=== PATIENT | male | born 1940 | race Caucasian/White ===

== ENCOUNTER 2017-10-26 13:09 | Outpatient (CLI) | payer MEDICARE ==
--- NOTE | 2017-10-26 13:40 | RAD ---
TWO VIEW CHEST: History: Dyspnea. FINDINGS: Lungs appear clear. No infiltrate. No vascular congestion or edema. Heart size upper normal with post op sternotomy change. Osseous structures unremarkable. IMPRESSION: No acute process. POS: [facility]
== END 2017-10-26 13:10 | disposition home or self-care (01) ==
LOC: RAD 13:09
PROVIDERS: ATTEND Internal Medicine Pulmonary Disease
DX: R06.00 Dyspnea, unspecified (principal)
CPT/HCPCS: 71046

== ENCOUNTER 2018-06-15 06:39 | Outpatient (CLI) | payer MEDICARE ==
[2018-06-15 11:50] LABS: #Basophils 0.1 thou/uL (0.0-0.2); #Eosinphils 0.3 thou/uL (0.0-0.7); #Lymphocytes 1.5 thou/uL (1.20-3.40); #Monocytes 0.6 thou/uL (0.11-0.59); #Neutrophils 3.1 thou/uL (1.40-6.50); %Eosinophils 4.7 % (0.0-10.0); %Lymphocytes 27.4 % (21.0-51.0); %Monocytes 11.3 % (0.0-10.0); %Neutrophils 55.6 % (42.0-75.0); Hemoglobin 11.8 g/dL (14.0-18.0); Mean Corpuscular HGB CONC 32.7 g/dL (32.0-36.0); Mean Corpuscular Hemoglobin 26.8 pg (27.0-31.0); Mean Corpuscular Volume 81.8 fL (78.0-98.0); Mean Platelet Volume 8.6 fL (7.4-10.4); Platelet Count 226 thou/uL (130-400); RBC Distribution Width 12.8 % (11.5-14.5); White Blood Cell (WBC) Count 5.6 thou/uL (4.8-10.8)
[2018-06-15 12:16] LABS: ALT (SGPT) 14 U/L (8-55); AST (SGOT) 14 U/L (5-34); Albumin 3.8 g/dL (3.4-4.8); Alkaline Phosphatase 67 U/L (40-150); Anion Gap 13 mmol/L (10-20); BUN (Urea Nitrogen) 32 mg/dL (8.4-25.7); Bilirubin, Total 0.2 mg/dL (0.2-1.2); Calc. Creatinine Clearance 0 mL/min (70-130); Calcium 9.2 mg/dL (7.8-10.44); Carbon Dioxide 24 mmol/L (23-31); Chloride 104 mmol/L (98-107); Estimated GFR-MDRD 34; Globulin 2.8 g/dL (2.4-3.5); Glucose 204 mg/dL (83-110); Potassium 4.3 mmol/L (3.5-5.1); Protein, Total 6.6 g/dL (5.8-8.1); Sodium 137 mmol/L (136-145)
== END 2018-06-15 06:40 | disposition home or self-care (01) ==
LOC: LABBT 06:39
PROVIDERS: ATTEND Internal Medicine Cardiovascular Disease
DX: Z01.812 Encounter for preprocedural laboratory examination (principal); R06.00 Dyspnea, unspecified
CPT/HCPCS: 80053; 85025

== ENCOUNTER 2018-08-01 15:33 | Observation (INO) | payer MEDICARE ==
[2018-08-01 15:57] VITALS: BMI 34.8
[2018-08-01 16:15] LABS: #Basophils 0.1 thou/uL (0.0-0.2); #Eosinphils 0.4 thou/uL (0.0-0.7); #Lymphocytes 1.9 thou/uL (1.20-3.40); #Monocytes 0.8 thou/uL (0.11-0.59); #Neutrophils 4.1 thou/uL (1.40-6.50); %Basophils 0.9 % (0.0-1.0); %Eosinophils 5.9 % (0.0-10.0); %Monocytes 11.3 % (0.0-10.0); %Neutrophils 55.8 % (42.0-75.0); Hemoglobin 12.7 g/dL (14.0-18.0); Mean Corpuscular HGB CONC 32.9 g/dL (32.0-36.0); Mean Corpuscular Hemoglobin 27.7 pg (27.0-31.0); Mean Corpuscular Volume 84.2 fL (78.0-98.0); Mean Platelet Volume 8.4 fL (7.4-10.4); Platelet Count 239 thou/uL (130-400); RBC Distribution Width 13.3 % (11.5-14.5); Red Blood Cell (RBC) Count 4.58 mill/uL (4.70-6.10); White Blood Cell (WBC) Count 7.4 thou/uL (4.8-10.8)
[2018-08-01 16:34] LABS: Anion Gap 15 mmol/L (10-20); BUN (Urea Nitrogen) 36 mg/dL (8.4-25.7); Calc. Creatinine Clearance 49 mL/min (70-130); Calcium 9.3 mg/dL (7.8-10.44); Carbon Dioxide 20 mmol/L (23-31); Chloride 107 mmol/L (98-107); Estimated GFR-MDRD 34; Glucose 145 mg/dL (83-110); Sodium 138 mmol/L (136-145)
[2018-08-01] MEDS ORDERED: Zolpidem Tartrate 5 MG TAB PO PRN (17:24)
[2018-08-01] MEDS ORDERED: Mag-Al 1200 mg/1200 mg/30 ML UDCUP PO PRN (17:24)
[2018-08-01] MEDS ORDERED: Ondansetron ODT 4 MG TAB PO PRN (17:24)
[2018-08-01] MEDS ORDERED: Milk Of Magnesia 30 ML UDCUP PO PRN (17:24)
[2018-08-01] MEDS ORDERED: cloNIDine 0.1 MG TAB PO PRN (20:16)
[2018-08-01] MEDS: Amlodipine 10 MG TAB PO SCH (21:21)
[2018-08-01] MEDS: Ezetimibe 10 MG TAB PO SCH (21:21)
[2018-08-01] MEDS: hydrALAZINE 25 MG TAB PO SCH (21:22)
[2018-08-01] MEDS: Atorvastatin Calcium 40 MG TAB PO SCH (21:28)
[2018-08-01] MEDS: Sodium Chloride 0.9% 1,000 ML IV SCH (21:51)
[2018-08-02] MEDS: Aspirin 81 mg Enteric Coated Tablet PO SCH (06:14)
[2018-08-02] MEDS: Clopidogrel Bisulfate 75 MG TAB PO SCH (06:14)
[2018-08-02] MEDS: hydrALAZINE 25 MG TAB PO SCH ×3 (06:14→20:27)
[2018-08-02] MEDS: Atorvastatin Calcium 40 MG TAB PO SCH (06:15)
[2018-08-02 06:48] LABS: #Eosinphils 0.3 thou/uL (0.0-0.7); #Lymphocytes 1.3 thou/uL (1.20-3.40); #Monocytes 0.6 thou/uL (0.11-0.59); %Basophils 0.6 % (0.0-1.0); %Eosinophils 5.4 % (0.0-10.0); %Monocytes 10.9 % (0.0-10.0); %Neutrophils 58.1 % (42.0-75.0); Hemoglobin 11.3 g/dL (14.0-18.0); Mean Corpuscular HGB CONC 32.4 g/dL (32.0-36.0); Mean Corpuscular Hemoglobin 26.6 pg (27.0-31.0); Mean Corpuscular Volume 82.2 fL (78.0-98.0); Mean Platelet Volume 8.5 fL (7.4-10.4); Platelet Count 225 thou/uL (130-400); RBC Distribution Width 13.1 % (11.5-14.5); Red Blood Cell (RBC) Count 4.25 mill/uL (4.70-6.10); White Blood Cell (WBC) Count 5.2 thou/uL (4.8-10.8)
[2018-08-02] MEDS ORDERED: Heparin 10,000 UNITS/1 ML VIAL ONE ×2 (07:04→08:34)
[2018-08-02] MEDS ORDERED: Nitroglycerin 100MG/250ML BOT 250 ML ONE (07:04)
[2018-08-02 07:10] LABS: Anion Gap 12 mmol/L (10-20); BUN (Urea Nitrogen) 27 mg/dL (8.4-25.7); Calc. Creatinine Clearance 63 mL/min (70-130); Calcium 8.7 mg/dL (7.8-10.44); Carbon Dioxide 22 mmol/L (23-31); Chloride 108 mmol/L (98-107); Estimated GFR-MDRD 44; Glucose 207 mg/dL (83-110); Sodium 138 mmol/L (136-145)
[2018-08-02] MEDS ORDERED: Midazolam HCl 2 mg/2 ml Vial ONE (08:15)
[2018-08-02] MEDS ORDERED: Clopidogrel Bisulfate 300 MG TAB ONE (08:28)
[2018-08-02] MEDS ORDERED: Fentanyl 100 MCG/2 ML VIAL ONE (09:18)
[2018-08-02] MEDS ORDERED: Iopamidol 370 76% 100 ML VIAL ONE (09:53)
[2018-08-02] MEDS ORDERED: Iopamidol 370 76% 50 ML VIAL FS ONE (09:53)
[2018-08-02] MEDS ORDERED: Fentanyl 100 MCG/2 ML VIAL SLOW IVP PRN (10:04)
[2018-08-02] MEDS: Sodium Chloride 0.9% 1,000 ML IV SCH ×3 (13:43→21:47)
[2018-08-02] MEDS ORDERED: HumuLIN 70/30 (300 UNITS/3 ML VIAL) SC SCH (16:30)
--- NOTE | 2018-08-02 17:08 | EKG ---
Test Reason : POST STENT Blood Pressure : / mmHG Vent. Rate : 051 BPM Atrial Rate : 051 BPM P-R Int : 162 ms QRS Dur : 090 ms QT Int : 426 ms P-R-T Axes : 008 082 046 degrees QTc Int : 392 ms Sinus bradycardia Possible Anterior infarct , age undetermined Nonspecific T wave abnormality Abnormal ECG Confirmed by VISHNU AARON ([id number]) on 08/02/2018 5:07:33 PM Referred By: YADIRA Confirmed By:VISHNU AARON
[2018-08-02] MEDS: Ezetimibe 10 MG TAB PO SCH (20:28)
[2018-08-02] MEDS: Amlodipine 10 MG TAB PO SCH (20:28)
[2018-08-03 05:26] LABS: #Eosinphils 0.3 thou/uL (0.0-0.7); #Lymphocytes 1.3 thou/uL (1.20-3.40); #Monocytes 0.6 thou/uL (0.11-0.59); #Neutrophils 4.1 thou/uL (1.40-6.50); %Basophils 0.6 % (0.0-1.0); %Eosinophils 4.1 % (0.0-10.0); %Lymphocytes 20.6 % (21.0-51.0); %Neutrophils 64.7 % (42.0-75.0); Hemoglobin 11.2 g/dL (14.0-18.0); Mean Corpuscular HGB CONC 33.3 g/dL (32.0-36.0); Mean Corpuscular Hemoglobin 28.2 pg (27.0-31.0); Mean Corpuscular Volume 84.7 fL (78.0-98.0); Mean Platelet Volume 8.7 fL (7.4-10.4); Platelet Count 206 thou/uL (130-400); Red Blood Cell (RBC) Count 3.96 mill/uL (4.70-6.10); White Blood Cell (WBC) Count 6.3 thou/uL (4.8-10.8)
[2018-08-03 05:36] LABS: ALT (SGPT) 9 U/L (8-55); AST (SGOT) 14 U/L (5-34); Albumin 3.3 g/dL (3.4-4.8); Alkaline Phosphatase 57 U/L (40-150); Anion Gap 12 mmol/L (10-20); BUN (Urea Nitrogen) 22 mg/dL (8.4-25.7); Bilirubin, Total 0.2 mg/dL (0.2-1.2); Calc. Creatinine Clearance 66 mL/min (70-130); Calcium 8.5 mg/dL (7.8-10.44); Carbon Dioxide 21 mmol/L (23-31); Chloride 111 mmol/L (98-107); Estimated GFR-MDRD 48; Globulin 2.4 g/dL (2.4-3.5); Glucose 88 mg/dL (83-110); Potassium 3.9 mmol/L (3.5-5.1); Protein, Total 5.7 g/dL (5.8-8.1); Sodium 140 mmol/L (136-145)
[2018-08-03 08:29] VITALS: BP 145/66; TEMP 98.2
[2018-08-03] MEDS: hydrALAZINE 25 MG TAB PO SCH (09:10)
[2018-08-03] MEDS: Clopidogrel Bisulfate 75 MG TAB PO SCH (09:10)
[2018-08-03] MEDS: Aspirin 81 mg Enteric Coated Tablet PO SCH (09:10)
--- NOTE | 2018-08-03 13:05 | EKG ---
Test Reason : Blood Pressure : / mmHG Vent. Rate : 054 BPM Atrial Rate : 054 BPM P-R Int : 166 ms QRS Dur : 088 ms QT Int : 544 ms P-R-T Axes : 005 077 024 degrees QTc Int : 515 ms Sinus bradycardia with occasional Premature ventricular complexes Nonspecific T wave abnormality Prolonged QT Abnormal ECG Confirmed by VISHNU AARON ([id number]) on 08/03/2018 1:05:03 PM Referred By: YADIRA Confirmed By:VISHNU AARON
--- NOTE | 2018-08-03 15:35 | DIS ---
DATE OF ADMISSION: 08/01/2018 DATE OF DISCHARGE: 08/03/2018 DISCHARGE DIAGNOSIS: Coronary artery disease, status post stent placement. HISTORY OF PRESENT ILLNESS: Mr. Shaffer is a very pleasant 78-year-old gentleman, who was admitted overnight for hydration. He has chronic kidney disease. He underwent coronary angiography on 08/02/2018. He was found to have severe multivessel disease. His grafts were patent except for a graft to his right coronary artery. He had in-stent restenoses of a stent placed in 2017. He underwent successful stent placement. His hospital course was otherwise unremarkable. DISCHARGE MEDICATIONS: 1. Amlodipine 10 mg q.p.m. 2. Hydralazine 100 mg t.i.d. 3. Aspirin 81 daily. 4. Plavix 75 daily. 5. Losartan one daily. 6. DC omeprazole. 7. Lasix 20 daily. 8. Zetia 10 mg daily. 9. Atorvastatin 40 daily. 10. Insulin as prescribed. 11. Protonix 40 daily. CONDITION AT DISCHARGE: Stable. Job ID: [id number]
== END 2018-08-03 11:13 | disposition home or self-care (01) ==
LOC: 2SW 15:33
PROVIDERS: ADMIT Internal Medicine Cardiovascular Disease; ATTEND Internal Medicine Cardiovascular Disease
PROC: 4A023N7 Measurement of Cardiac Sampling and Pressure, Left Heart, Percutaneous Approach (ICD-10-PCS; principal; 2018-08-02)
PROC: B2111ZZ Fluoroscopy of Multiple Coronary Arteries using Low Osmolar Contrast (ICD-10-PCS; 2018-08-02)
PROC: B2131ZZ Fluoroscopy of Multiple Coronary Artery Bypass Grafts using Low Osmolar Contrast (ICD-10-PCS; 2018-08-02)
PROC: 027034Z Dilation of Coronary Artery, One Artery with Drug-eluting Intraluminal Device, Percutaneous Approach (ICD-10-PCS; 2018-08-02)
DX: I25.10 Atherosclerotic heart disease of native coronary artery without angina pectoris (principal); I25.82 Chronic total occlusion of coronary artery; I12.9 Hypertensive chronic kidney disease with stage 1 through stage 4 chronic kidney disease, or unspecified chronic kidney disease; N18.9 Chronic kidney disease, unspecified; Z79.02 Long term (current) use of antithrombotics/antiplatelets; Z79.4 Long term (current) use of insulin; Z79.82 Long term (current) use of aspirin; Z79.899 Other long term (current) drug therapy; Z95.1 Presence of aortocoronary bypass graft; Z95.5 Presence of coronary angioplasty implant and graft
CPT/HCPCS: 80048 ×2; 80053; 82962; 85025 ×3; 85347 ×2; 93005 ×2; 93798; 96360; 96361 ×3; C1769 ×2; C1874; G0378; G0379; 36415; 36416; 93010; J1644; J1815; J2250; J3010; Q9967

== ENCOUNTER 2018-11-27 16:51 | Observation (INO) | payer MEDICARE ==
--- NOTE | 2018-11-27 17:54 | RAD ---
FRONTAL VIEW CHEST: INDICATIONS: Chest pain. COMPARISON: 10/26/2017 FINDINGS: The cardiac silhouette is prominent, and there is mild prominence of the pulmonary vasculature. Patc hy density at the left lower lung zone is present. The right lung is grossly clear. Prior sternotom y is noted. IMPRESSION: Findings favor congestive heart failure with decompensation. Recommend clinical correlation, as well as imaging followup. POS: [facility]
[2018-11-27 18:00] LABS: #Basophils 0.1 thou/uL (0.0-0.2); #Eosinphils 0.2 thou/uL (0.0-0.7); #Lymphocytes 1.3 thou/uL (1.20-3.40); #Monocytes 0.6 thou/uL (0.11-0.59); #Neutrophils 3.3 thou/uL (1.40-6.50); %Basophils 1.3 % (0.0-1.0); %Eosinophils 4.2 % (0.0-10.0); %Monocytes 11.6 % (0.0-10.0); %Neutrophils 58.9 % (42.0-75.0); Hemoglobin 10.4 g/dL (14.0-18.0); Mean Corpuscular HGB CONC 33.4 g/dL (32.0-36.0); Mean Corpuscular Hemoglobin 27.3 pg (27.0-31.0); Mean Corpuscular Volume 81.6 fL (78.0-98.0); Mean Platelet Volume 8.9 fL (7.4-10.4); Platelet Count 174 thou/uL (130-400); RBC Distribution Width 13.5 % (11.5-14.5); Red Blood Cell (RBC) Count 3.81 mill/uL (4.70-6.10); White Blood Cell (WBC) Count 5.5 thou/uL (4.8-10.8)
[2018-11-27] MEDS ORDERED: Nitroglycerin 2% Ointment 1 INCH/1 GM Packet ONE (18:20)
[2018-11-27] MEDS ORDERED: Morphine 4 MG/ML VIAL ONE (18:20)
[2018-11-27] MEDS ORDERED: Aspirin Chewable 81 MG TAB ONE (18:22)
[2018-11-27 18:30] LABS: ALT (SGPT) 12 U/L (8-55); AST (SGOT) 12 U/L (5-34); Albumin 3.6 g/dL (3.4-4.8); Alkaline Phosphatase 51 U/L (40-150); Anion Gap 12 mmol/L (10-20); BUN (Urea Nitrogen) 44 mg/dL (8.4-25.7); Bilirubin, Total 0.2 mg/dL (0.2-1.2); Calc. Creatinine Clearance 0 mL/min (70-130); Calcium 8.6 mg/dL (7.8-10.44); Carbon Dioxide 20 mmol/L (23-31); Chloride 109 mmol/L (98-107); Estimated GFR-MDRD 29; Glucose 171 mg/dL (83-110); Lipase 30 U/L (8-78); Magnesium 1.5 mg/dL (1.6-2.6); Potassium 4.3 mmol/L (3.5-5.1); Protein, Total 5.6 g/dL (5.8-8.1); Sodium 137 mmol/L (136-145)
--- NOTE | 2018-11-27 19:04 | ULT ---
LEFT LOWER EXTREMITY ULTRASOUND WITH VENOUS DOPPLER DUPLEX: CPT: 32438 ICD-10-PCS: B54D INDICATIONS: Pain and edema. TECHNIQUE: Color-flow Doppler, spectral wave-form analysis of pulsed Doppler, and klein-scale imaging with compre ssion and augmentation were used to evaluate the bilateral common femoral, femoral, popliteal, vegetable harvest worker ior tibial, and superficial femoral veins, and the proximal portions of the profunda femoral and grea ter saphenous veins. FINDINGS: There is appropriate compressibility and flow within the imaged deep venous system of the left lower extremity. IMPRESSION: No deep venous thrombosis. POS: [facility]
[2018-11-27] MEDS ORDERED: Acetaminophen 325 MG TAB PO PRN (19:53)
[2018-11-27] MEDS ORDERED: Senokot S 8.6-50 MG TAB PO PRN (19:53)
[2018-11-27] MEDS ORDERED: HYDROcodone/Acetaminophen 5/325 mg Tablet PO PRN (19:53)
[2018-11-27] MEDS ORDERED: Magnesium 2 GM/50 ML BAG (IN WATER) ONE (20:17)
[2018-11-27] MEDS ORDERED: Lactated Ringer's 1,000 ML IV SCH ×2 (20:51→22:15)
[2018-11-27 20:59] LABS: Troponin I 0.011 ng/mL (< 0.028)
[2018-11-27] MEDS ORDERED: Famotidine 20 MG TAB PO SCH (21:00)
[2018-11-27 21:07] VITALS: BMI 33.7
[2018-11-27] MEDS ORDERED: Dextrose 50% Abboject 50 ML SYRINGE SLOW IVP PRN (23:12)
[2018-11-27] MEDS ORDERED: Dextrose 5% in Water 1,000 ML IV PRN (23:12)
[2018-11-27] MEDS ORDERED: HumaLOG 300 UNITS/3 ML VIAL SC PRN (23:12)
[2018-11-28 00:07] LABS: Troponin I Less than 0.010 ng/mL (< 0.028)
[2018-11-28] MEDS ORDERED: Lactated Ringer's 1,000 ML IV SCH ×2 (02:45)
--- NOTE | 2018-11-28 04:45 | HP ---
PRIMARY CARE PHYSICIAN: Dr. Earl. CARDIOLOGY: Krish Diop MD CHIEF COMPLAINT: Chest pain. HISTORY OF PRESENT ILLNESS: Mr. Shaffer is a 78-year-old man, who reported to the emergency room today for evaluation of chest pain. The patient does have a pertinent past medical history of CABG, stent placement, angina, coronary artery disease, congestive heart failure, diabetes, hypertension, sleep apnea. Initial troponin was undetectable. The patient was admitted in July of 2018 for dehydration and underwent coronary angiography on 08/02/2018. He was found to have severe multi-vessel disease. His grafts were patent except for the right coronary artery. He had in-stent restenoses of stent placed in 2017, which was successful and he was subsequently discharged. Reports that he has seen Dr. Diop recently and had his blood pressure medication changed. Reports that it bottomed out his blood pressure, so he went back to his PCP, who changed it to doxazosin. He reports chest pain, chest tightness, shortness of breath for the last 4 days. He denied any fever, chills, or cough. He also is experiencing some left lower extremity swelling, which he reports at baseline. An ultrasound was ordered and was negative for DVT. The patient will be admitted to the observation unit for further management. PAST MEDICAL HISTORY: Coronary artery disease with angina, coronary artery bypass of two vessels, history of hypertension, diabetes, arthritis. PAST SURGICAL HISTORY: Coronary artery bypass graft with two-vessel disease, tonsillectomy, bilateral cataract surgery, did have a cardiac cath in July of 2018, did have a restenoses of coronary artery graft. HOME MEDICATIONS: 1. Norvasc 10 mg p.o. q.p.m. 2. Lipitor 80 mg p.o. daily. 3. Doxazosin 2 mg p.o. at bedtime. 4. Zetia 10 mg p.o. at bedtime. 5. Furosemide 20 mg p.o. daily. 6. Hydralazine 100 mg p.o. t.i.d. 7. Insulin NPH 35 units subcu b.i.d. 8. Losartan 100 mg p.o. daily. 9. Aspirin 81 mg p.o. daily. 10. Plavix 75 mg p.o. daily. 11. Protonix 40 mg p.o. daily. REVIEW OF SYSTEMS: The patient reports chest pain. Denies palpitations. Reports shortness of breath, dyspnea on exertion. Denies cough. Denies fever or chills. All other systems are reviewed and are negative unless mentioned in the HPI. PHYSICAL EXAMINATION: VITAL SIGNS: Blood pressure 137/55, pulse is 53, respiratory rate is 19, temp is 98.6, pO2 sats 98% on room air. CONSTITUTIONAL: The patient is in no apparent distress. He is alert and oriented to person, place, and time. HEENT: Head is atraumatic and normocephalic. Eyes; eyelids are normal to inspection. Pupils are equally round and reactive to light. Extraocular muscles are intact. ENT; mouth exam is normal. Mucous membranes are moist. NECK: Normal range of motion. Trachea is midline. RESPIRATORY/CHEST: Chest movement is symmetrical. Breath sounds are clear. CARDIOVASCULAR: S1, S2. Heart sounds are normal. ABDOMEN: Nontender. Bowel sounds are heard. BACK: Normal range of motion. No CVA tenderness. EXTREMITIES: Upper extremity, normal range of motion. Radial pulses equal bilaterally. Lower extremity, normal range of motion. Swelling to bilateral lower extremities. NEUROLOGIC: The patient is oriented to person, place, and time. Speech is normal. SKIN: Warm, dry, normal in color. PSYCH: Has a normal affect. EKG shown in the ER, normal sinus rhythm, beats per minute 71 with frequent PVCs. QT is 449. X-ray of the chest shows congestive heart failure. Lower extremity DVT on the left shows no deep vein thrombosis. LABORATORY DATA: Lab values: Sodium is 137, potassium is 4.3, chloride is 109, carbon dioxide is 20, gap is 12, BUN is 44, creatinine is 2.24, estimated GFR is 29, glucose is 171, calcium is 8.6, magnesium is 1.5, total bilirubin 0.2. Liver enzymes are unremarkable. Troponin x3 are undetectable. Albumin 3.6, globulin is 2.0, lipase is 30. D-dimer 0.42. White blood cell count is 5.5, hemoglobin is 10.4, hematocrit is 31.1, and platelet count is 174. ASSESSMENT AND PLAN: 1. Chest pain in light of the patient has had a cardiac cath in July of this year, also has a history of congestive heart failure. We will ask Dr. Diop for his input. The patient's troponin x3 were undetectable. His magnesium level was low and was supplemented in the emergency room. 2. Acute on chronic kidney injury. The patient was given a bolus of fluid of 250 mL in the emergency room. We will add normal saline at 50 mL per hour x1 bag. We will recheck kidney function in the a.m. 3. Hypomagnesemia. Magnesium initially 1.5. Two grams of magnesium was given in the emergency room. We will check levels again in the morning. 4. Hypertension. We will restart home medications. 5. Hyperlipidemia. We will restart home medications. 6. Diabetes. We will check Accu-Cheks before meals and at bedtime, added sliding scale as needed for coverage. 7. Deep venous thrombosis and gastrointestinal prophylaxis have been started. 8. Hospital course will depend on clinical findings. Job ID: [id number]
[2018-11-28 05:16] LABS: #Basophils 0.1 thou/uL (0.0-0.2); #Eosinphils 0.2 thou/uL (0.0-0.7); #Lymphocytes 1.3 thou/uL (1.20-3.40); #Monocytes 0.6 thou/uL (0.11-0.59); #Neutrophils 2.9 thou/uL (1.40-6.50); %Basophils 1.1 % (0.0-1.0); %Eosinophils 4.7 % (0.0-10.0); %Lymphocytes 26.2 % (21.0-51.0); %Monocytes 11.3 % (0.0-10.0); %Neutrophils 56.8 % (42.0-75.0); Hemoglobin 10.4 g/dL (14.0-18.0); Mean Corpuscular HGB CONC 33.2 g/dL (32.0-36.0); Mean Corpuscular Hemoglobin 27.4 pg (27.0-31.0); Mean Corpuscular Volume 82.8 fL (78.0-98.0); Mean Platelet Volume 9.2 fL (7.4-10.4); Platelet Count 162 thou/uL (130-400); RBC Distribution Width 13.5 % (11.5-14.5); White Blood Cell (WBC) Count 5.1 thou/uL (4.8-10.8)
[2018-11-28 05:43] LABS: ALT (SGPT) 10 U/L (8-55); AST (SGOT) 12 U/L (5-34); Albumin 3.3 g/dL (3.4-4.8); Alkaline Phosphatase 45 U/L (40-150); Anion Gap 12 mmol/L (10-20); BUN (Urea Nitrogen) 36 mg/dL (8.4-25.7); Bilirubin, Total 0.2 mg/dL (0.2-1.2); Calc. Creatinine Clearance 50 mL/min (70-130); Carbon Dioxide 19 mmol/L (23-31); Chloride 111 mmol/L (98-107); Estimated GFR-MDRD 35; Globulin 2.3 g/dL (2.4-3.5); Glucose 130 mg/dL (83-110); Potassium 4.3 mmol/L (3.5-5.1); Protein, Total 5.6 g/dL (5.8-8.1); Sodium 138 mmol/L (136-145)
[2018-11-28] MEDS: HumuLIN 70/30 (300 UNITS/3 ML VIAL) SC SCH ×2 (09:26→18:01)
[2018-11-28] MEDS: hydrALAZINE 25 MG TAB PO SCH ×3 (10:15→20:53)
[2018-11-28] MEDS: Atorvastatin Calcium 40 MG TAB PO SCH (10:15)
[2018-11-28] MEDS: Furosemide 20 MG TAB PO SCH (10:16)
[2018-11-28] MEDS: Aspirin 81 mg Enteric Coated Tablet PO SCH (10:16)
[2018-11-28] MEDS: Clopidogrel Bisulfate 75 MG TAB PO SCH (10:16)
[2018-11-28] MEDS: Losartan 25 MG TAB PO SCH (10:16)
--- NOTE | 2018-11-28 16:32 | PRG ---
DATE OF SERVICE: 11/28/2018 SUBJECTIVE: Mr. Shaffer is a pleasant 78-year-old male with past medical history significant for CAD, status post CABG, status post recent PCI in July 2018, who presented to the hospital with worsening chest pain and shortness of breath, that he noticed while participating in cardiac rehab. The patient has ambulated the halls and continues to feel quite winded and uncomfortable secondary to his shortness of breath and chest pressure with ambulation. He denies any nausea or vomiting. He denies any diaphoresis. He is resting comfortably at the time of my interview. No other complaints. OBJECTIVE: VITAL SIGNS: Blood pressure is 136/63, pulse 49, respirations 18, O2 sat 94% on room air, and temperature 97.8. GENERAL: The patient is a mildly obese male, resting comfortably in bed, no acute distress. HEENT: Head is atraumatic and normocephalic. Mucous membranes are moist. NECK: Supple. Trachea is midline. No obvious JVD. CV: S1 and S2. Regular rhythm, bradycardic rate. Soft systolic murmur, grade 1/6. LUNGS: Regular respiratory rate and pattern. Clear to auscultation bilaterally. ABDOMEN: Soft. Positive bowel sounds. Moderately obese. Nontender. EXTREMITIES: +1 edema left, trace edema right. Lower extremities are warm and well perfused. SKIN: Warm and dry. No rashes. NEUROLOGIC: Cranial nerves 2 through 12 are grossly intact. The patient is nonfocal. PSYCHIATRIC: Appropriate mood and affect. LABORATORY DATA: Hemoglobin 10.4, hematocrit 31.4, white blood cell count 5.1, and platelets 162. Sodium 138, potassium 4.3, BUN 36, and creatinine 1.87. ASSESSMENT: 1. Chest pain and shortness of breath, acute coronary syndrome ruled out, but suspicious for angina given the patient's history. 2. Coronary artery disease, status post coronary artery bypass graft, status post multiple interventions, with the most recent PTCA and stenting of the vein graft to the RCA, July 2018. 3. 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 4. Type 2 diabetes mellitus. 5. Sinus bradycardia/sick sinus syndrome, apparently asymptomatic, no dizziness or syncope. PLAN: At this time, given the patient's renal insufficiency, plan is for continued optimization of the patient's oral antianginal medications. Per Dr. Diop, we will continue to monitor the patient's overnight, but the patient may indeed need left heart catheterization. We will continue aspirin, statin, and Plavix. Certainly, he may benefit from a trial of Ranexa or other antianginal. We will continue sliding scale insulin and we will continue to monitor his kidney function closely. Further recommendation is based on the patient's hospital course. Job ID: [id number]
--- NOTE | 2018-11-28 17:32 | CON ---
DATE OF CONSULTATION: REASON FOR CONSULTATION: Atypical chest pain. HISTORY OF PRESENT ILLNESS: Mr. Shaffer is a very pleasant 78-year-old gentleman with history of CAD status post bypass surgery and recent stent placement to a saphenous vein graft to the right coronary artery for in-stent restenoses. He states he has had weakness and fatigue recently. He has also had bradycardia. He stopped his Coreg 1 week ago. Heart rate has been in the mid 40s to 50s. His heart rate is mainly maintained in the mid 40s while asleep. He has also had chest pain. He states it was similar to his previous pain, although states he is unsure whether his pain improved after stent implantation in July. PAST MEDICAL HISTORY: As above; 1. Hypertension. 2. Bradycardia. 3. CAD. 4. COPD. 5. Chronic kidney disease. REVIEW OF SYSTEMS: A 10-point review of systems is reviewed as above, otherwise negative. PHYSICAL EXAMINATION: GENERAL: Patient is a pleasant 78-year-old gentleman who is in no acute distress. The patient appears their stated age. VITAL SIGNS: Blood pressure 110/53, pulse 60, temperature 97.9. NEUROLOGIC: The patient is alert and oriented x3 with no focal neurologic deficits. HEENT: Sclerae without icterus. Mouth has moist mucous membranes with normal pallor. NECK: No JVD. Carotid upstroke brisk. No bruits bilaterally. LUNGS: Clear to auscultation with unlabored respirations. BACK: No scoliosis or kyphosis. CARDIAC: Regular rate and rhythm with normal S1 and S2. No S3 or S4 noted. No significant rubs, murmurs, thrills, or gallops noted throughout the precordium. PMI is not displaced. There is no parasternal heave. ABDOMEN: Soft, nontender, nondistended. No peritoneal signs present. No hepatosplenomegaly. No abnormal striae. EXTREMITIES: 2+ femoral and 2+ dorsalis pedis pulses. No cyanosis, clubbing, or edema. SKIN: No gross abnormalities. IMPRESSION: 1. Atypical chest pain. 2. Coronary artery disease. 3. Status post bypass surgery. 4. Bradycardia. RECOMMENDATIONS: Mr. Shaffer's recent labs do not appear to show an acute ischemic event. His troponin is negative. His EKG is stable. I am unsure whether this is true in-stent restenoses. It certainly seems to would be a short-time span for the above. I discussed proceeding with coronary angiography and medical therapy. He is unsure about proceeding with coronary angiography. We will try medical therapy 1st. We will add Imdur 30 mg p.o. q.a.m. with 1st dose now. We will keep him n.p.o. after midnight. If he has recurrent symptoms, then proceed with angio in a.m. If he does well, we then discharge with close outpatient observation. May also consider a 3-week event recorder to assess for bradycardia, although bradycardia has mainly been in the non-waking hours. Job ID: [id number]
[2018-11-28] MEDS ORDERED: Amlodipine 10 MG TAB PO SCH (21:00)
[2018-11-28] MEDS ORDERED: Ezetimibe 10 MG TAB PO SCH (21:00)
[2018-11-28] MEDS ORDERED: Famotidine 20 MG TAB PO SCH (21:00)
[2018-11-28] MEDS ORDERED: Doxazosin 2 MG TAB PO SCH (21:00)
--- NOTE | 2018-11-29 07:33 | PDOC.CTH ---
Cardiology Progress Note - Subjective Doing well. NO recurrent CP. Pt with anxiety last pm and told by nourse she was concerned obout SAJI - Objective Vital Signs Temp Pulse Resp BP BP Pulse Ox 11/29/18 03:09 98.1 F 48 L 14 118/58 L 98 11/28/18 23:21 98.2 F 48 L 20 127/60 95 11/28/18 20:53 53 L 118/56 L 11/28/18 20:47 53 L 118/56 L Weight 236 lb 8 oz 11/28/18 11/29/18 11/30/18 06:59 06:59 06:59 Intake Total 623 1260 Output Total 700 1550 Balance -77 -290 - Physical Examination General/Neuro: alert & oriented x3, NAD Neck: carotid US brisk, no JVD present Lungs: unlabored respirations Heart: RRR Abdomen: no HSM, NT/ND, soft Extremities: + femoral B - Labs Result Diagrams: 11/28/18 04:29 11/29/18 07:38 Troponin/CKMB Troponin I Less than 0.010 ng/mL (< 0.028) 11/27/18 23:37 - Assessment/Plan Atypical CP CAD s/p CABG s/p stent for ISR RI Added imdur yesterday Creatinine stable Hold BB secondary to low HR Avoid ACEI, ARB On ASA, plavix Dicussed angio vs meds. Pt opts for meds. Pt with negative trops and negative KG. Seems reasonable given sent placed 3 months ago. No consistent with thrombosis
[2018-11-29 08:01] VITALS: TEMP 97.7
[2018-11-29 08:36] LABS: Anion Gap 11 mmol/L (10-20); BUN (Urea Nitrogen) 30 mg/dL (8.4-25.7); Calc. Creatinine Clearance 56 mL/min (70-130); Calcium 8.8 mg/dL (7.8-10.44); Carbon Dioxide 23 mmol/L (23-31); Chloride 108 mmol/L (98-107); Estimated GFR-MDRD 40; Glucose 98 mg/dL (83-110); Potassium 4.2 mmol/L (3.5-5.1); Sodium 138 mmol/L (136-145)
[2018-11-29] MEDS: Clopidogrel Bisulfate 75 MG TAB PO SCH (09:10)
[2018-11-29] MEDS: Furosemide 20 MG TAB PO SCH (09:10)
[2018-11-29] MEDS: hydrALAZINE 25 MG TAB PO SCH (09:10)
[2018-11-29] MEDS: Aspirin 81 mg Enteric Coated Tablet PO SCH (09:10)
[2018-11-29] MEDS: Atorvastatin Calcium 40 MG TAB PO SCH (09:10)
[2018-11-29] MEDS: Losartan 25 MG TAB PO SCH (09:11)
[2018-11-29] MEDS: HumuLIN 70/30 (300 UNITS/3 ML VIAL) SC SCH (09:12)
[2018-11-29 11:42] VITALS: BP 132/61
--- NOTE | 2018-11-29 12:16 | DIS ---
DATE OF ADMISSION: 11/27/2018 DATE OF DISCHARGE: 11/29/2018 CHIEF COMPLAINT ON ADMISSION: Chest pain. DISCHARGE DIAGNOSES: 1. Chest pain and shortness of breath, acute coronary syndrome ruled out, likely multifactorial in the setting of deconditioning, obesity, and untreated sleep apnea. 2. Coronary artery disease, status post four-vessel coronary artery bypass grafting, status post multiple interventions, most recent percutaneous transluminal coronary angioplasty and stenting of the vein graft to the right coronary artery in July 2018. 3. Acute on chronic renal insufficiency. At presentation, creatinine 2.24 on arrival, now 1.67, which appears to be his baseline, followed by Dr. Rodriguez. 4. Untreated obstructive sleep apnea. 5. Chronic obstructive pulmonary disease. 6. Sick sinus syndrome. 7. Type 2 diabetes mellitus. 8. Hypertension. 9. Obesity. BRIEF HOSPITAL COURSE: The patient is a very pleasant 78-year-old gentleman with past medical history for triple-vessel CAD, status post CABG and multiple interventions, COPD, untreated sleep apnea, and type 2 diabetes mellitus, who presented to the hospital with complaints of worsening chest pain and shortness of breath. The patient had noted decreased exercise tolerance at his cardiac rehab sessions. He stated that he felt worsening fatigue, and along with his symptoms, he was worried about stenosis of his recent stent placement, presented to the emergency department for further workup and treatment. He was admitted for ACS rule out. His serial troponins were indeed negative. He had no EKG changes. He was given gentle IV fluid resuscitation in the light of his creatinine of 2.24. This did trend down nicely. He was seen in consultation with Dr. Diop, who recommended optimization of his antianginals, given recent heart catheterization just a few months ago. The patient was started on Imdur 30 mg daily, which he did tolerate well. The patient has no complaints this morning. He is tolerating a full diet. No nausea or vomiting. No complaints at this time. DISCHARGE DISPOSITION: Home. DISCHARGE CONDITION: Stable. DISCHARGE INSTRUCTIONS AND FOLLOWUP: I have given the patient specific instructions regarding his followup and discharge plan. He will follow up with his block making machine operator, Dr. Cohen, for scheduling a sleep study along with treatment of his sleep apnea. I have explained him any sequelae of this going untreated including cardiac arrhythmias, pulmonary hypertension, fatigue, and shortness of breath. He will follow up with Dr. Diop as scheduled, and along with Dr. Rodriguez. The patient will continue his home medication regimen, which includes losartan, amlodipine, statin, aspirin, and Plavix. Unfortunately, the patient is unable to take beta-domingo due to his underlying bradycardia. I have advised the patient to discuss his ARB with Dr. Rodriguez regarding dosing and its role in his kidney disease. The patient will be discharged home in stable condition today. Job ID: [id number]
--- NOTE | 2018-12-02 22:10 | EKG ---
Test Reason : CHEST PAIN Blood Pressure : / mmHG Vent. Rate : 071 BPM Atrial Rate : 071 BPM P-R Int : 164 ms QRS Dur : 094 ms QT Int : 414 ms P-R-T Axes : 050 067 013 degrees QTc Int : 449 ms Sinus rhythm with frequent Premature ventricular complexes Otherwise normal ECG Confirmed by KATHY SHAW ([id number]), greeting card editor PADMA DOWNS ([id number]) on 12/02/2018 10:09:10 PM Referred By: COLIN Confirmed By:KATHY SHAW
== END 2018-11-29 11:40 | disposition home or self-care (01) ==
LOC: ERS 16:51 → 2SW 20:48
PROVIDERS: ADMIT Internal Medicine; ATTEND Internal Medicine
DX: R07.89 Other chest pain (principal); R06.02 Shortness of breath; I25.10 Atherosclerotic heart disease of native coronary artery without angina pectoris; I13.0 Hypertensive heart and chronic kidney disease with heart failure and stage 1 through stage 4 chronic kidney disease, or unspecified chronic kidney disease; E11.22 Type 2 diabetes mellitus with diabetic chronic kidney disease; N18.3 Chronic kidney disease, stage 3 (moderate); I50.9 Heart failure, unspecified; N17.9 Acute kidney failure, unspecified; M19.90 Unspecified osteoarthritis, unspecified site; E83.42 Hypomagnesemia; E78.5 Hyperlipidemia, unspecified; I49.5 Sick sinus syndrome; J44.9 Chronic obstructive pulmonary disease, unspecified; G47.33 Obstructive sleep apnea (adult) (pediatric); E66.9 Obesity, unspecified; Z68.33 Body mass index [BMI] 33.0-33.9, adult; Z79.4 Long term (current) use of insulin; Z79.02 Long term (current) use of antithrombotics/antiplatelets; Z79.82 Long term (current) use of aspirin; Z79.899 Other long term (current) drug therapy; Z95.1 Presence of aortocoronary bypass graft; Z95.5 Presence of coronary angioplasty implant and graft; Z98.890 Other specified postprocedural states
CPT/HCPCS: 71045; 80048; 80053 ×2; 82962 ×3; 83690; 83735 ×2; 84484 ×2; 85025 ×2; 85379; 93005; 93971; 94760; 96361 ×2; 96374; 97139; 99285; G0378 ×2; 36415; 36416; J1815; J2270; J3475

== ENCOUNTER 2018-12-18 12:45 | Outpatient (CLI) | payer MEDICARE ==
--- NOTE | 2018-12-18 14:42 | RAD ---
2 views of the chest: 12/18/2018 COMPARISON: 10/26/2017 HISTORY: Shortness of breath FINDINGS: Stable pulmonary hyperinflation. Findings suggest air trapping on the basis of COPD in the proper clinical setting. Stable prominence of the cardiac silhouette. Midline sternotomy wires are noted. No pneumothorax or pleural fluid. No focal consolidation or alveolar edema. IMPRESSION: Stable appearance of the chest.
== END 2018-12-18 12:46 | disposition home or self-care (01) ==
LOC: RAD 12:45
PROVIDERS: ATTEND Internal Medicine Pulmonary Disease
DX: R06.00 Dyspnea, unspecified (principal)
CPT/HCPCS: 71046

== ENCOUNTER 2019-01-01 19:30 | Outpatient (CLI) | payer MEDICARE | END 2019-01-01 19:31 | disposition home or self-care (01) | LOC: SLEEPLAB 19:30 | PROVIDERS: ATTEND Internal Medicine Pulmonary Disease | DX: G47.33 Obstructive sleep apnea (adult) (pediatric) (principal); K21.9 Gastro-esophageal reflux disease without esophagitis; E66.9 Obesity, unspecified; J44.9 Chronic obstructive pulmonary disease, unspecified; I25.10 Atherosclerotic heart disease of native coronary artery without angina pectoris; I10 Essential (primary) hypertension | CPT/HCPCS: 95811 ==

== ENCOUNTER 2019-03-12 12:48 | Observation (INO) | payer MEDICARE ==
[2019-03-12 15:20] VITALS: BMI 33.8
[2019-03-12 17:00] LABS: Troponin I Less than 0.010 ng/mL (< 0.028)
[2019-03-12] MEDS ORDERED: hydrALAZINE 20 MG/ML VIAL ONE ×2 (17:31→17:37)
[2019-03-12] MEDS ORDERED: hydrALAZINE 20 MG/ML VIAL SLOW IVP SCH (18:00)
[2019-03-12] MEDS ORDERED: Ondansetron ODT 4 MG TAB PO PRN (18:29)
[2019-03-12] MEDS ORDERED: Dextrose 50% Abboject 50 ML SYRINGE SLOW IVP PRN (18:29)
[2019-03-12] MEDS ORDERED: Acetaminophen 325 MG TAB PO PRN (18:29)
[2019-03-12] MEDS ORDERED: Dextrose 5% in Water 1,000 ML IV PRN (18:29)
[2019-03-12] MEDS ORDERED: Ondansetron PF 4 MG/2 ML Vial IVP PRN (18:29)
[2019-03-12] MEDS ORDERED: HumaLOG 300 UNITS/3 ML VIAL SC PRN ×2 (18:29)
[2019-03-12] MEDS ORDERED: Morphine 4 MG/ML VIAL SLOW IVP PRN (18:32)
[2019-03-12] MEDS ORDERED: Furosemide 40 MG/4 ML VIAL SLOW IVP SCH (18:45)
[2019-03-12 19:58] LABS: Troponin I Less than 0.010 ng/mL (< 0.028)
[2019-03-12] MEDS: hydrALAZINE 25 MG TAB PO SCH (20:09)
[2019-03-12] MEDS: Ezetimibe 10 MG TAB PO SCH (20:10)
[2019-03-12] MEDS: Amlodipine 10 MG TAB PO SCH (20:10)
[2019-03-12] MEDS: Doxazosin 2 MG TAB PO SCH (20:10)
--- NOTE | 2019-03-12 22:05 | HP ---
PRIMARY CARE PHYSICIAN: Aide Carlisle. CHIEF COMPLAINT: Chest pain. HISTORY OF PRESENT ILLNESS: Mr. Shaffer is a 78-year-old male with a past medical history of coronary artery disease, status post bypass and stent placement, hypertension, hyperlipidemia, congestive heart failure, diabetes mellitus type 2, and chronic kidney disease, who was seen at [facility] earlier today for his chest pain. He states that the chest pain has been on and off over the last week and has been worse with exertion, he was treated with topical nitroglycerin paste and given an aspirin orally, which had seemed to help with his chest pain. Therefore, he was transferred to [facility] for further workup and management of his symptoms. His serial troponins were found to be negative thus far, he also underwent a portable chest x-ray, which was found to show cardiomegaly without evidence of congestive heart failure at this time. At that time, he had denied any fever, chills, any headache, blurred vision, dizziness, any chest pain, palpitations, shortness of breath, abdominal pain, nausea, or vomiting. He did report some swelling on his lower extremities, which has been slightly worse in the left leg. He states that he was seen by Dr. Diop during the summer for these same symptoms, and Dr. Diop questioned a repeat heart catheterization, but due to the patient's renal function, it was determined the patient be treated medically. Therefore, he was started on Imdur at that time. REVIEW OF SYSTEMS: All other systems reviewed and found to be negative unless mentioned in HPI. PAST MEDICAL HISTORY: Hypertension, hyperlipidemia, diabetes mellitus type 2, coronary artery disease, congestive heart failure, sleep apnea. PAST SURGICAL HISTORY: Coronary artery bypass graft surgery x2 vessels, tonsillectomy, bilateral cataract surgery, cardiac stents x2. PSYCHIATRIC HISTORY: None. SOCIAL HISTORY: The patient reports drinking socially. He denies any tobacco or illicit drug use, he is a former tobacco smoker, but quit more than 12 years ago. KNOWN ALLERGIES: No known drug allergies. CURRENT HOME MEDICATIONS: 1. Aspirin 81 mg daily. 2. Clopidogrel 75 mg oral daily. 3. Losartan 100 mg oral daily. 4. Amlodipine 10 mg oral daily. 5. Atorvastatin 80 mg oral daily. 6. Doxazosin 2 mg p.o. at bedtime. 7. Zetia 10 mg p.o. at bedtime. 8. Furosemide 20 mg oral daily. 9. Hydralazine 100 mg oral t.i.d. 10. Insulin BPH 70/30, 35 units subcu b.i.d. 11. Isosorbide mononitrate 30 mg p.o. daily. 12. Protonix 40 mg oral daily. 13. Anoro 62.5/25 mcg one inhalation daily. PHYSICAL EXAMINATION: VITAL SIGNS: BP 129/64, pulse 47, respirations 19, temperature 97.5, O2 saturation 98% on room air. GENERAL: The patient is awake, alert, and oriented x3. He is currently lying comfortably in bed and in no acute distress. HEENT: Atraumatic, normocephalic. Pupils are round and reactive to light. Extraocular muscles intact. Moist mucous membranes noted. NECK: Soft and supple. Trachea midline. CARDIOVASCULAR: Positive S1 and S2. Regular rate and rhythm. No murmur auscultated. RESPIRATORY: Clear to auscultation bilaterally. No wheezes, rales, or rhonchi. ABDOMEN: Soft, nontender. Bowel sounds present. MUSCULOSKELETAL: Moves all extremities equal. Pedal and radial pulses 2+ bilaterally. The patient with 2+ pitting edema in left leg, 1+ pitting edema in right below the knee. NEUROLOGIC: Cranial nerves 2 through 12 grossly intact. No focal deficits noted. Speech intact and normal. Gait not assessed. SKIN: Warm, dry and intact. No rashes. No ulceration noted. PSYCHIATRIC: Good mood and affect. LABORATORY DATA: WBC 5.3, RBC 4.28, hemoglobin 10.9, hematocrit 33.9, platelet 194. Sodium 139, potassium 4.4, anion gap 15, BUN 40, creatinine 2.25, estimated GFR 28, glucose 283, magnesium 1.8, CK-MB 1.1, troponin less than 0.010 x3. DIAGNOSTIC IMAGING: Portable chest x-ray showed cardiomegaly without evidence of congestive heart failure. ASSESSMENT AND PLAN: 1. Chest pain, due to patient's history, we will consult Cardiology Services at this time and we will restart his home regimen. However, we will hold Plavix and his home dose of losartan due to his current acute kidney injury status. We will treat him symptomatically as needed with nitroglycerin and IV morphine. The patient's pain is currently stable. His EKG is unchanged from prior studies and his troponin is negative x3. 2. Hypertension. Continue home regimen. Monitor blood pressure and other vital signs closely. However, due to his current acute kidney injury, we will hold home dose of losartan. 3. Acute on chronic kidney disease. We will place consult for his primary varnish thinner, Dr. Rodriguez. 4. History of congestive heart failure. The patient does appear to be slightly fluid overloaded. Therefore, we will treat him with IV Lasix x1 dose and monitor clinically. 5. Diabetes mellitus type 2. Continue regimen along with insulin sliding scale on frequent Accu-Cheks. 6. Deep venous thrombosis and gastrointestinal prophylaxis. 7. Code status, full code. 8. Surrogate decision maker is his daughter, Francesca. DISPOSITION: Pending further workup and clinical findings and the patient's progress. Job ID: [id number]
[2019-03-12] MEDS: diphenhydrAMINE 25 MG CAP PO PRN (22:48)
[2019-03-13 04:24] LABS: #Basophils 0.1 thou/uL (0.0-0.2); #Eosinphils 0.2 thou/uL (0.0-0.7); #Lymphocytes 1.2 thou/uL (1.20-3.40); #Monocytes 0.6 thou/uL (0.11-0.59); #Neutrophils 4.7 thou/uL (1.40-6.50); %Basophils 0.8 % (0.0-1.0); %Eosinophils 3.4 % (0.0-10.0); %Monocytes 8.3 % (0.0-10.0); %Neutrophils 69.6 % (42.0-75.0); Hemoglobin 11.6 g/dL (14.0-18.0); Mean Corpuscular HGB CONC 33.7 g/dL (32.0-36.0); Mean Corpuscular Hemoglobin 27.7 pg (27.0-31.0); Mean Corpuscular Volume 82.2 fL (78.0-98.0); Platelet Count 189 thou/uL (130-400); RBC Distribution Width 13.7 % (11.5-14.5); Red Blood Cell (RBC) Count 4.21 mill/uL (4.70-6.10); White Blood Cell (WBC) Count 6.7 thou/uL (4.8-10.8)
[2019-03-13 04:37] LABS: Anion Gap 14 mmol/L (10-20); BUN (Urea Nitrogen) 40 mg/dL (8.4-25.7); Calc. Creatinine Clearance 44 mL/min (70-130); Carbon Dioxide 21 mmol/L (23-31); Chloride 105 mmol/L (98-107); Estimated GFR-MDRD 31; Glucose 206 mg/dL (83-110); Potassium 4.4 mmol/L (3.5-5.1); Sodium 136 mmol/L (136-145)
[2019-03-13] MEDS: Enoxaparin Sodium 30 MG/0.3 ML SYRINGE SC SCH ×2 (07:55→13:09)
[2019-03-13] MEDS: HumuLIN 70/30 (300 UNITS/3 ML VIAL) SC SCH ×2 (07:55→17:45)
[2019-03-13] MEDS: hydrALAZINE 25 MG TAB PO SCH ×3 (07:58→21:14)
[2019-03-13] MEDS: Aspirin 81 mg Enteric Coated Tablet PO SCH (07:58)
[2019-03-13] MEDS: Atorvastatin Calcium 40 MG TAB PO SCH (07:59)
[2019-03-13] MEDS: Furosemide 20 MG TAB PO SCH (07:59)
[2019-03-13] MEDS: Isosorbide Mononitrate (ER) 30 MG TAB PO SCH (07:59)
--- NOTE | 2019-03-13 12:33 | CON ---
DATE OF CONSULTATION: 03/13/2019 CONSULTING PHYSICIAN: Corey De La O PA-C REASON FOR CONSULTATION: Acute kidney injury on chronic kidney disease, stage 3. REASON FOR ADMISSION: Chest pain. HISTORY OF PRESENT ILLNESS: This is a 78-year-old male with history of CKD, hypertension, hyperlipidemia, and CAD, who came to the hospital with chest pain and has been evaluated. The patient does follow up with me at the clinic. He has recently had a cardiac procedure. The patient is feeling better. He was also found to have bradycardia. No nausea or vomiting. No fever or chills. PAST MEDICAL HISTORY: Positive for hypertension, hyperlipidemia, type 2 diabetes, coronary artery disease, congestive heart failure, and sleep apnea, PAST SURGICAL HISTORY: CABG, tonsillectomy, cataract surgery, and cardiac stents. HOME MEDICATIONS: 1. Aspirin. 2. Plavix. 3. Losartan. 4. Amlodipine. 5. Atorvastatin. 6. Doxazosin. 7. Zetia. 8. Furosemide. 9. Hydralazine. 10. Insulin. 11. Isosorbide. 12. Protonix. 13. Anoro. ALLERGIES: NO KNOWN DRUG ALLERGIES. SOCIAL HISTORY: No smoking, alcohol, or illicit drugs. FAMILY HISTORY: No history of kidney disease. REVIEW OF SYSTEMS: CONSTITUTIONAL: Negative for weight loss or gain, ability to conduct usual activities. SKIN: Negative for rash, itching. EYES: Negative for double vision, pain. ENT/MOUTH: Negative for nose bleeding, neck stiffness, pain, tenderness. CARDIOVASCULAR: Negative for palpitations, dyspnea on exertion, orthopnea. RESPIRATORY: Negative for shortness of breath, wheezing, cough, hemoptysis, fever or night sweats. GASTROINTESTINAL: Negative for poor appetite, abdominal pain, heartburn, nausea, vomiting, constipation, or diarrhea. GENITOURINARY: Negative for urgency, frequency, dysuria, nocturia. MUSCULOSKELETAL: Negative for pain, swelling. NEUROLOGIC/PSYCHIATRIC: Negative for anxiety, depression. ALLERGY/IMMUNOLOGIC: Negative for skin rash, bleeding tendency. PHYSICAL EXAMINATION: GENERAL: Reveals a well-built male, in no apparent distress. VITAL SIGNS: Temperature 97.9, pulse , and blood pressure 114/62. HEENT: Atraumatic, normocephalic. Oral mucosa is moist. NECK: Supple. CARDIOVASCULAR: S1 and S2. Regular rate and rhythm. RESPIRATORY: Clear. GASTROINTESTINAL: Abdomen is soft. MUSCULOSKELETAL: 1+ edema. DERMATOLOGIC: No skin rash. NEUROLOGIC: Alert and awake. PSYCHIATRIC: Mood and affect normal. LABORATORY DATA: Potassium 4.4, BUN is 40, and creatinine is 2.09 from 2.25 yesterday, baseline is around 1.4 to 1.8. ASSESSMENT AND PLAN: 1. Acute kidney injury on chronic kidney disease, stage 3, slightly better, most likely cardiorenal syndrome. 2. Cardiorenal syndrome. 3. Edema, better. 4. Shortness of breath is better. 5. Chest pain, better. 6. History of hypertension. 7. Anemia of chronic disease. Renal function seems to be slightly better, most likely cardiorenal syndrome and Lasix yesterday. We will continue to monitor. Avoid nephrotoxins and follow with Cardiology for further plans. The patient remains at moderate risk for contrast-induced nephropathy. We will follow. Job ID: [id number]
--- NOTE | 2019-03-13 12:40 | CON ---
DATE OF CONSULTATION: HISTORY OF PRESENT ILLNESS: The patient is a 78-year-old gentleman, who presented with dizziness and chest discomfort. The patient has a long history of coronary artery disease. He is status post coronary artery bypass surgery x 2 nearly 15 years ago. The patient states he underwent PTCA and stent placement approximately 2 years ago. He re-presented with chest pain, underwent a repeat catheterization. He was found to have a patent CUMMINS and underwent PTCA and stent placement to the RCA graft. The patient reports having chest pain with and without exertion. The patient presented to the emergency room with increasing chest discomfort. He also was noted having increasing dizziness. The patient has a history of bradycardia and wore an event monitor. The patient states that he had severe midsternal chest discomfort that was relieved with nitroglycerin. He denies having any present chest discomfort. PAST MEDICAL HISTORY: 1. Coronary artery disease. 2. Bradycardia. 3. Hypertension. 4. Dyslipidemia. 5. Diabetes mellitus. 6. Chronic renal failure. PAST SURGICAL HISTORY: Coronary artery bypass graft surgery. SOCIAL HISTORY: Former smoker. ALLERGIES: NO KNOWN DRUG ALLERGIES. FAMILY HISTORY: Positive family history of heart disease. REVIEW OF SYSTEMS: Ten-point system noticed for increasing dizziness and weakness. PHYSICAL EXAMINATION: GENERAL: An obese gentleman in no acute distress. VITAL SIGNS: Blood pressure 141/64. NECK: No jugular venous distention. LUNGS: Clear to auscultation. HEART: Regular rate and rhythm. Normal S1 and S2 with a 2/6 systolic murmur. ABDOMEN: Distended. EXTREMITIES: Showed trace edema. VASCULAR: Radial pulses are 2+. LABORATORY RESULTS: Sodium 136, potassium 4.4, chloride 105, bicarbonate 21, BUN 40, creatinine 2.0, troponin 0.01. White blood cell count 6.7, hemoglobin 11.6, hematocrit 34.6, and his platelets are 189. IMAGING STUDIES: His EKG reveals him to have normal sinus bradycardia with poor R-wave progression. IMPRESSION: 1. Chest pain with some features suggestive of angina. 2. History of percutaneous transluminal coronary angioplasty and stent placement. 3. History of coronary artery bypass surgery x2. 4. Chronic renal insufficiency. 5. Diabetes mellitus. This gentleman presents with chest pain and dyspnea from a cardiac standpoint. I would recommend he undergo stress testing. We will also try to obtain his last echocardiogram. We will follow this patient with you through his hospitalization. Job ID: [id number] ANNE MARIE
[2019-03-13] MEDS ORDERED: FLU VACC TS2019-20(65YR UP)/PF 180 MCG/0.5 ML SYRINGE IM ONE (16:00)
--- NOTE | 2019-03-13 18:09 | PDOC.HOSPP ---
- Subjective Encounter Date: 03/13/19 Encounter Time: 15:05 Subjective: f/u for CP/angina on current Imdur. Plan for BARGEMAN as renal function not amenable to contrast study with [facility]. - Objective Vital Signs & Weight: Vital Signs (12 hours) Temp Pulse Resp BP BP Pulse Ox 03/13/19 17:06 58 L 140/63 03/13/19 16:00 55 L 140/63 03/13/19 11:58 97.4 F L 58 L 18 127/62 95 03/13/19 08:00 97.9 F 53 L 20 141/64 H 94 L 03/13/19 07:58 54 L Weight Weight 224 lb 9.6 oz I&O: 03/12/19 03/13/19 03/14/19 06:59 06:59 06:59 Intake Total 830 Balance 830 Result Diagrams: 03/13/19 03:47 03/13/19 03:47 Additional Labs: Accuchecks 03/13/19 03/13/19 03/12/19 16:52 10:53 20:41 POC Glucose 301 H 190 H 150 H Radiology Reviewed by me: Yes (PCXR - cardiomegaly) EKG Reviewed by me: Yes (Tele - SR) Hospitalist ROS - Medication Medications: Active Medications Generic Name Dose Route Start Last Admin Trade Name Freq PRN Reason Stop Dose Admin Albuterol/Ipratropium 3 ml 03/12/19 19:00 03/13/19 12:10 Duoneb NEB Not Given [id number] MAYDA Amlodipine Besylate 10 mg 03/12/19 21:00 03/12/19 20:10 Norvasc PO 10 mg QPM MAYDA Administration Aspirin 81 mg 03/13/19 09:00 03/13/19 07:58 Ecotrin PO 81 mg DAILY MAYDA Administration Atorvastatin Calcium 80 mg 03/13/19 09:00 03/13/19 07:59 Lipitor PO 80 mg DAILY MAYDA Administration Diphenhydramine HCl 25 mg 03/12/19 22:39 03/12/19 22:48 Benadryl PO 25 mg HS PRN Administration Itching & Insomnia Doxazosin Mesylate 2 mg 03/12/19 21:00 03/12/19 20:10 Cardura PO 2 mg HS MAYDA Administration Ezetimibe 10 mg 03/12/19 21:00 03/12/19 20:10 Zetia PO 10 mg HS MAYDA Administration Enoxaparin Sodium 30 mg 03/13/19 09:00 03/13/19 13:09 Lovenox SC 30 mg 0900 MAYDA Administration Furosemide 20 mg 03/13/19 09:00 03/13/19 07:59 Lasix PO 20 mg DAILY MAYDA Administration Hydralazine HCl 100 mg 03/12/19 21:00 03/13/19 17:06 Apresoline PO 100 mg TID MAYDA Administration Insulin Human Isoph/Insulin Regular 35 units 03/13/19 07:30 03/13/19 17:45 Humulin 70/30 SC 35 unit BID-AC MAYDA Administration Insulin Human Lispro 0 units 03/12/19 18:29 03/13/19 17:46 Humalog SC 5 unit .MILD SLIDING SCALE PRN Administration Mild Correctional Scale Isosorbide Mononitrate 30 mg 03/13/19 09:00 03/13/19 07:59 Imdur Er PO 30 mg DAILY MAYDA Administration Morphine Sulfate 4 mg 03/12/19 18:32 03/12/19 19:21 Morphine SLOW IVP 4 mg Q4H PRN Administration Moderate to Severe Pain (6-10) Pantoprazole Sodium 40 mg 03/13/19 09:00 03/13/19 07:58 Protonix PO 40 mg DAILY MAYDA Administration - Exam General Appearance: NAD, awake alert Eye: PERRL, anicteric sclera ENT: normocephalic atraumatic, no oropharyngeal lesions Neck: supple, symmetric, no JVD, no thyromegaly, no lymphadenopathy Heart: RRR, no murmur, no gallops, no rubs, normal peripheral pulses Respiratory: CTAB, no wheezes, no rales, no ronchi, normal chest expansion Gastrointestinal: soft, non-tender, non-distended, normal bowel sounds Extremities: no cyanosis, no clubbing, no edema Skin: normal turgor, no lesions Neurological: cranial nerve grossly intact, no new deficit Musculoskeletal: normal tone, normal strength Psychiatric: normal affect, A&O x 3 Hosp A/P (1) Chest pain Code(s): R07.9 - CHEST PAIN, UNSPECIFIED Status: Acute Plan: Suspect angina, continue Nitrates, ASA/Plavix, BARGEMAN in am, may consider Ranexa (2) CAD (coronary artery disease) Code(s): I25.10 - ATHSCL HEART DISEASE OF [place] CORONARY ARTERY W/O ANG PCTRS Status: Chronic Plan: Continue ASA/Plavix, Lipitor (3) HTN (hypertension) Code(s): I10 - ESSENTIAL (PRIMARY) HYPERTENSION Status: Chronic Qualifiers: Hypertension type: essential hypertension Qualified Code(s): I10 - Essential (primary) hypertension Plan: Resume home BP regimen, serial monitoring (4) DM II (diabetes mellitus, type II), controlled Code(s): E11.9 - TYPE 2 DIABETES MELLITUS WITHOUT COMPLICATIONS Status: Chronic Plan: ISS, continue home Insulin 70/30 35u sc BID (5) CKD (chronic kidney disease), stage III Code(s): N18.3 - CHRONIC KIDNEY DISEASE, STAGE 3 (MODERATE) Status: Chronic Plan: Avoid nephrotoxic meds and limit contrast exposure - Plan out of bed/ambulate, DVT proph w/SCDs Stable currently Plan for BARGEMAN in am Continue Imdur/ASA/Plavix Consider Ranexa AM lab: BMP
[2019-03-13] MEDS: Ezetimibe 10 MG TAB PO SCH (21:14)
[2019-03-13] MEDS: Doxazosin 2 MG TAB PO SCH (21:15)
[2019-03-13] MEDS: Amlodipine 10 MG TAB PO SCH (21:15)
[2019-03-13] MEDS: diphenhydrAMINE 25 MG CAP PO PRN (21:18)
[2019-03-14 06:41] LABS: Anion Gap 11 mmol/L (10-20); BUN (Urea Nitrogen) 45 mg/dL (8.4-25.7); Calc. Creatinine Clearance 44 mL/min (70-130); Calcium 8.8 mg/dL (7.8-10.44); Carbon Dioxide 26 mmol/L (23-31); Chloride 106 mmol/L (98-107); Estimated GFR-MDRD 32; Glucose 84 mg/dL (83-110); Potassium 3.6 mmol/L (3.5-5.1); Sodium 139 mmol/L (136-145)
[2019-03-14] MEDS: HumuLIN 70/30 (300 UNITS/3 ML VIAL) SC SCH ×2 (09:30→11:37)
[2019-03-14] MEDS: hydrALAZINE 25 MG TAB PO SCH ×2 (11:38→15:21)
[2019-03-14] MEDS: Atorvastatin Calcium 40 MG TAB PO SCH (11:39)
[2019-03-14] MEDS: Aspirin 81 mg Enteric Coated Tablet PO SCH (11:39)
[2019-03-14] MEDS: Isosorbide Mononitrate (ER) 30 MG TAB PO SCH (11:39)
[2019-03-14] MEDS: Enoxaparin Sodium 30 MG/0.3 ML SYRINGE SC SCH (11:40)
[2019-03-14] MEDS: Furosemide 20 MG TAB PO SCH (11:40)
--- NOTE | 2019-03-14 12:17 | NM ---
MYOCARDIAL PERFUSION SCAN: INDICATIONS: Chest pain. TECHNIQUE: The patient was given approximately 30 millicuries of technetium labeled sestamibi for both stress an d rest images. The patient was stressed according to Lexiscan protocol. FINDINGS: The left ventricle was imaged with SPECT imaging. Attenuation correction images obtained. Activity throughout the left ventricle appears symmetrical on stress and rest images. No evidence of reversible ischemia. Wall motion evaluation reveals left ventricular dilatation with global hypokinesis and dyskinesis. Ej ection fraction is recorded at 62%. IMPRESSION: No evidence of reversible ischemia. POS: SIRIA
[2019-03-14 12:29] VITALS: BP 149/65; TEMP 97.5
--- NOTE | 2019-03-14 14:46 | CON ---
DATE OF CONSULTATION: REASON FOR CONSULTATION: Recurrent episodes of chest pain. His stress study was negative for significant ischemia. PAST MEDICAL HISTORY: CAD, status post bypass surgery, hypertension, hyperlipidemia, chronic kidney disease. PAST SURGICAL HISTORY: CABG. PHYSICAL EXAMINATION: VITAL SIGNS: Blood pressure 149/65, pulse 56, temperature 97.5. GENERAL: Patient is a pleasant male, who is in no acute distress. The patient appears their stated age. NEUROLOGIC: The patient is alert and oriented x3 with no focal neurologic deficits. HEENT: Sclerae without icterus. Mouth has moist mucous membranes with normal pallor. NECK: No JVD. Carotid upstroke brisk. No bruits bilaterally. LUNGS: Clear to auscultation with unlabored respirations. BACK: No scoliosis or kyphosis. CARDIAC: Regular rate and rhythm with normal S1 and S2. No S3 or S4 noted. No significant rubs, murmurs, thrills, or gallops noted throughout the precordium. PMI is not displaced. There is no parasternal heave. ABDOMEN: Soft, nontender, nondistended. No peritoneal signs present. No hepatosplenomegaly. No abnormal striae. EXTREMITIES: 2+ femoral and 2+ dorsalis pedis pulses. No cyanosis, clubbing, or edema. SKIN: No gross abnormalities. PERTINENT LABORATORY DATA: CK troponin negative. IMPRESSION: 1. Atypical chest pain. 2. Coronary artery disease. 3. Chronic kidney disease. 4. Status post bypass surgery. RECOMMENDATIONS: From a CV standpoint, Mr. Shaffer is doing well. We will continue current medical therapy. I did discuss angiography, although his stress study was negative for ischemia with a normal LVEF. Given his renal insufficiency, he is at increased risk of contrast nephropathy. The patient is pleased with the findings on his stress study. We would like to continue medical therapy. We will continue with amlodipine, aspirin, atorvastatin, in addition to isosorbide. Hold beta-domingo therapy due to intermittent episodes of bradycardia. Otherwise, from my standpoint, I have no further recommendations. We will plan to follow up as an outpatient. Job ID: [id number]
--- NOTE | 2019-03-14 16:25 | DIS ---
DATE OF ADMISSION: 03/12/2019 DATE OF DISCHARGE: 03/14/2019 DISCHARGE DIAGNOSES: 1. Chest pain, noncardiac. 2. Coronary artery disease, chronic and stable. 3. Hypertension stable. 4. Acute kidney injury on chronic kidney disease, stage 3. 5. Diabetes mellitus type 2, insulin requiring. CONSULTATIONS: 1. Dr. Nolan with Cardiology Service. 2. Dr. Rodriguez with Nephrology Service. PERTINENT LABORATORY AND X-RAY FINDINGS: Creatinine ranged between 2.03 and 2.25. Estimated GFR ranged between 28 and 32. Troponin I negative x3. CBC showed a hemoglobin 12, hematocrit 35. Portable chest x-ray dated 03/12/2019, showed cardiomegaly without evidence of pulmonary edema. Cardiolite stress test dated 03/13/2019, showed no evidence for reversible or fixed ischemia with calculated ejection fraction of 62%. HOSPITAL COURSE: The patient was initially placed in observation on the telemetry unit after presenting with chest pain concerning for unstable angina. Serial cardiac biomarkers were performed x3, which were negative as stated previously. The patient proceeded to Cardiolite stress testing showing no evidence of reversible or fixed ischemia with a calculated ejection fraction of 62%. The patient was also noted with acute kidney injury in the context of chronic kidney disease stage 3, likely due to contrast-induced nephropathy. The patient was evaluated by the Nephrology Service with recommendations to modify chronic medications and avoid further nephrotoxic agents and contrast. Serial creatinine showed slow improvement and renal function; however, the patient remained clinically stable through the hospital course. I have examined the patient the time of discharge and discussed followup instructions. The patient overall clinically stable and ready for discharge on 03/14/2019. DISCHARGE MEDICATIONS: 1. Amlodipine 10 mg p.o. at bedtime. 2. Lipitor 80 mg p.o. daily. 3. Doxazosin 2 mg p.o. at bedtime. 4. Zetia 10 mg p.o. at bedtime. 5. Lasix 20 mg p.o. daily. 6. Hydralazine 100 mg p.o. t.i.d. 7. NPH insulin 35 units subcutaneously b.i.d. 8. Anoro Ellipta 62.5 mcg inhaled daily. 9. Enteric-coated aspirin 81 mg p.o. daily. 10. Plavix 75 mg p.o. daily. 11. Imdur 30 mg p.o. daily. 12. Losartan 100 mg p.o. daily, hold x72 hours. 13. Protonix 40 mg p.o. daily. FOLLOWUP: The patient may follow up with Dr. Manzo within 7 days of discharge. CONDITION ON DISCHARGE: Stable. ACTIVITY: Ad-nat. DIET: Heart healthy and ADA. CODE STATUS: Full. DISPOSITION: Home, 03/14/2019. Job ID: [id number]
--- NOTE | 2019-03-14 20:50 | PRG ---
DATE OF SERVICE: 03/14/2019 SUBJECTIVE: Patient was seen and examined at bedside and overnight events noted. Patient denies any shortness of breath or chest pain or palpitation. No history of nausea or vomiting or diarrhea or fever or chills or cramps. OBJECTIVE: GENERAL: This is a well-built male, in no apparent distress. VITAL SIGNS: Temperature 97.8. Heart rate 56. Respiratory rate 18. Blood pressure 149/65. HEENT: Atraumatic, normocephalic. Oral mucosa is moist NECK: Supple. CARDIOVASCULAR: S1, S2 heard. Rate and rhythm regular. RESPIRATORY: Clear to auscultation. GASTROINTESTINAL: Abdomen is soft. MUSCULOSKELETAL: No tenderness. No edema. DERMATOLOGIC: No skin rash. NEUROLOGIC: Alert and awake and oriented X3. No focal neurologic deficits. Moving all the extremities. PSYCHIATRIC: Mood and affect normal. LABORATORY DATA: Potassium 3.6, BUN is 45, creatinine is 2.03. ASSESSMENT AND PLAN: 1. Acute kidney injury on chronic kidney disease, stage 3, stable. 2. Cardiorenal syndrome. 3. Edema. 4. Chest pain. 5. Hypertension. 6. Anemia of chronic disease. Labs are stable from Nephrology standpoint, we will follow. Avoid nephrotoxins. We will follow with Cardiology and primary team. Job ID: [id number]
--- NOTE | 2019-03-15 23:45 | STRESS ---
Acquisition Time: 2019-03-14 09:57:20 Total Exercise Time: 00:01:00 Test Indications: CHEST PAIN Medications: Protocol: LEXISCAN Max HR: 074 BPM 51% of Pred: 143 BPM Max BP: 152/052 mmHG Max Work Load: 1.0 METS RESTING ECG: SINUS BRADYCARDIA AT 51 BPM WITH RIGHT AXIS DEVIATION, OLD SEPTAL AND ANTERIOR AR; NON-SPECIFIC ST SEGMENT AND T-WAVE CHANGES SYMPTOMS: NONE NORMAL BP RESPONSE ECTOPY: RARE PVC'S ECG STRESS: NO SIGNIFICANT CHANGES INTERPRETATION: INDETERMINATE ECG/AWAIT NUCLEAR IMAGES FOR DEFINITIVE DIAGNOSIS Confirmed by COMPA NAJERA M.D. ([id number]) on 03/15/2019 11:44:25 PM Referred By: MD Shruthi AARON Confirmed By:COMPA NAJERA M.D.
--- NOTE | 2019-03-19 22:24 | EKG ---
Test Reason : CHEST PAIN Blood Pressure : / mmHG Vent. Rate : 054 BPM Atrial Rate : 054 BPM P-R Int : 170 ms QRS Dur : 082 ms QT Int : 540 ms P-R-T Axes : 006 075 025 degrees QTc Int : 512 ms Sinus bradycardia Prolonged QT Abnormal ECG When compared with ECG of 12-MAR-2019 13:09, (Unconfirmed) QT has lengthened Confirmed by COMPA NAJERA M.D. ([id number]) on 03/19/2019 10:24:06 PM Referred By: ALIN Confirmed By:COMPA NAJERA M.D.
== END 2019-03-14 15:29 | disposition home or self-care (01) ==
LOC: ERS 12:48 → 2SW 15:18
PROVIDERS: ADMIT Internal Medicine; ATTEND Internal Medicine
DX: R07.89 Other chest pain (principal); I25.10 Atherosclerotic heart disease of native coronary artery without angina pectoris; I13.0 Hypertensive heart and chronic kidney disease with heart failure and stage 1 through stage 4 chronic kidney disease, or unspecified chronic kidney disease; E11.22 Type 2 diabetes mellitus with diabetic chronic kidney disease; N18.3 Chronic kidney disease, stage 3 (moderate); N17.9 Acute kidney failure, unspecified; I50.9 Heart failure, unspecified; G47.30 Sleep apnea, unspecified; Z79.4 Long term (current) use of insulin; Z79.82 Long term (current) use of aspirin; Z79.899 Other long term (current) drug therapy; Z87.891 Personal history of nicotine dependence; Z95.1 Presence of aortocoronary bypass graft; Z91.5 Personal history of self-harm
CPT/HCPCS: 78452; 80048 ×2; 82962 ×3; 84484; 85025; 90662; 93005; 93017; 96372; 96374; 96375; 96376; 97139; 99285; A9500; G0008; G0378 ×3; 36415; 36416; 90471; 93010; J0360; J1650; J1815; J1940; J2270; Q0163

== ENCOUNTER 2019-05-14 21:04 | Observation (INO) | payer MEDICARE ==
[2019-05-14 21:33] LABS: #Eosinphils 0.4 thou/uL (0.0-0.7); #Lymphocytes 1.7 thou/uL (1.20-3.40); #Monocytes 0.7 thou/uL (0.11-0.59); #Neutrophils 4.5 thou/uL (1.40-6.50); %Basophils 0.6 % (0.0-1.0); %Eosinophils 4.9 % (0.0-10.0); %Monocytes 9.6 % (0.0-10.0); Hemoglobin 11.4 g/dL (14.0-18.0); Mean Corpuscular HGB CONC 34.6 g/dL (32.0-36.0); Mean Corpuscular Hemoglobin 27.7 pg (27.0-31.0); Mean Corpuscular Volume 80.2 fL (78.0-98.0); Mean Platelet Volume 8.2 fL (7.4-10.4); Platelet Count 206 thou/uL (130-400); RBC Distribution Width 12.9 % (11.5-14.5); White Blood Cell (WBC) Count 7.2 thou/uL (4.8-10.8)
[2019-05-14 21:52] LABS: ALT (SGPT) 14 U/L (8-55); AST (SGOT) 16 U/L (5-34); Albumin 3.9 g/dL (3.4-4.8); Alkaline Phosphatase 68 U/L (40-110); Anion Gap 13 mmol/L (10-20); BUN (Urea Nitrogen) 32 mg/dL (8.4-25.7); Bilirubin, Total 0.2 mg/dL (0.2-1.2); Calc. Creatinine Clearance 0 mL/min (70-130); Carbon Dioxide 23 mmol/L (23-31); Chloride 103 mmol/L (98-107); Estimated GFR-MDRD 31; Globulin 2.8 g/dL (2.4-3.5); Glucose 197 mg/dL (83-110); Protein, Total 6.7 g/dL (5.8-8.1); Sodium 135 mmol/L (136-145)
--- NOTE | 2019-05-14 22:42 | RAD ---
AP CHEST: History: Chest pain, shortness of breath. FINDINGS: Borderline cardiomegaly with post op sternotomy change and pacemaker leads. No infiltrate or vascular congestion. Blunting of the left CP angle could represent small left effusion. Findings have not significantly changed from the exam of 03-12-19. IMPRESSION: Question small left effusion. Chest is otherwise unremarkable and unchanged. POS: OFF
--- NOTE | 2019-05-14 23:40 | ULT ---
LEFT UPPER EXTREMITY VENOUS DUPLEX EXAM: Technique: Veins of left upper extremity evaluated with ultrasound, color doppler, spectral analysis and compression. Indications: Left upper extremity pain and edema. FINDINGS: The left internal jugular veins show normal flow and compression. The left subclavian vein shows norm al blood flow with doppler study. Left axillary vein, basilic vein, brachial vein, ulnar vein, cephalic vein and radial vein were all i cary and appear unremarkable. No evidence of venous thrombosis. IMPRESSION: No evidence of left upper extremity venous thrombosis identified. POS: OFF
[2019-05-15] MEDS ORDERED: Aspirin Chewable 81 MG TAB ONE (01:01)
[2019-05-15] MEDS ORDERED: Insulin Regular 300 UNITS/3 ML VIAL SC PRN (02:19)
[2019-05-15] MEDS ORDERED: Dextrose 50% Abboject 50 ML SYRINGE SLOW IVP PRN (02:19)
[2019-05-15] MEDS ORDERED: Dextrose 5% in Water 1,000 ML IV PRN (02:19)
[2019-05-15] MEDS ORDERED: Acetaminophen 650 MG Suppository PR PRN (02:20)
[2019-05-15] MEDS ORDERED: Acetaminophen 325 MG TAB PO PRN (02:20)
[2019-05-15] MEDS ORDERED: Furosemide 40 MG/4 ML VIAL SLOW IVP SCH (02:30)
[2019-05-15] MEDS ORDERED: Furosemide 20 MG/2 ML VIAL ONE (03:13)
--- NOTE | 2019-05-15 03:23 | HP ---
TIME OF ASSESSMENT: 0200 hours. CHIEF COMPLAINT: Shortness of breath and left upper extremity swelling. HISTORY OF PRESENT ILLNESS: Mr. Shaffer is a pleasant 79-year-old gentleman, who was recently discharged from the hospital two months ago on March 14, 2019, after being admitted with chest pain. He underwent a stress test at that time that was normal with an EF of 62%. Since then, the patient has undergone a pacemaker placement three weeks ago. He states in the last 2 days, he has developed shortness of breath similar to what he was experiencing prior to the pacemaker placement. He states that shortness of breath is present even at rest and he has noted significant swelling of the left upper extremity. Denies any redness or skin changes. Denies any fevers or chills. He has been dealing with a dry cough for the last few days and nasal congestion. Denies any sore throat. No chest pain or palpitations. He has noted some lower extremity edema. Otherwise feeling well without any other complaints. PAST MEDICAL HISTORY: 1. Coronary artery disease. 2. CHF. 3. Type 2 diabetes mellitus. 4. Hypertension. 5. Sleep apnea. PAST SURGICAL HISTORY: 1. CABG x2. 2. Tonsillectomy. 3. Bilateral cataract surgery. 4. Heart stents x3. 5. Pacemaker placed three weeks ago. SOCIAL HISTORY: The patient lives with his family. Reports drinking alcohol occasionally/socially. Denies any tobacco use or illicit drug use. ALLERGIES: NO KNOWN DRUG ALLERGIES. CURRENT MEDICATIONS: 1. Lipitor. 2. Aspirin. 3. Losartan. 4. Novolin 70/30. 5. Lasix. PHYSICAL EXAMINATION: GENERAL: The patient appears well developed, well nourished, he is in no acute distress. VITAL SIGNS: Temperature 97.6, pulse 74, blood pressure 156/64, respirations 16, and O2 saturation 96% on room air. HEENT: Normocephalic and atraumatic. Pupils are equal, round, and reactive to light. Sclerae without icterus. Oropharynx is clear. NECK: Supple. LUNGS: Clear to auscultation bilaterally without wheezes, rales, or rhonchi. CARDIAC: Regular rate and rhythm. ABDOMEN: Soft, obese, nontender, nondistended. Normoactive bowel sounds present. EXTREMITIES: Left upper extremity notable for swelling when compared to the right. Bilateral lower extremities also notable for swelling. No calf tenderness. NEUROLOGIC: Alert and oriented x3. SKIN: Without rash or jaundice. LABORATORY DATA: White count 7.2, hemoglobin 11.4, hematocrit 32.9, and platelets 206. D-dimer elevated at 1.28. Sodium 135, potassium 4.0, BUN 32, creatinine 2.11, GFR 31, and glucose 197. LFTs unremarkable. Troponin negative. BNP 24.6. Albumin 3.9. DIAGNOSTIC STUDIES: Chest x-ray done showed questionable small left pleural effusion. Otherwise unremarkable. Vascular ultrasound of the left upper extremity without evidence of DVT. IMPRESSION AND PLAN: Mr. Shaffer is a pleasant 79-year-old gentleman presenting with shortness of breath for 2 days and left upper extremity swelling, has been referred for management of the following; 1. Shortness of breath/left upper extremity swelling. The patient believed to be in fluid overload given swelling involving the lower extremities as well. He underwent a venous Doppler that was negative for deep venous thrombosis involving the left upper extremity. Given elevated D-dimer, we will plan to obtain a V/Q scan in the morning. He was unable to have a CT angiogram due to underlying chronic kidney disease. He was given aspirin in the emergency department. We will plan to give him a dose of Lasix. Continue diuresis. 2. Hypertension. Monitor blood pressure. Resume home medications once verified. 3. Congestive heart failure. As mentioned above, we will diurese. 4. Coronary artery disease. Resume home medications once verified. 5. Type 2 diabetes mellitus. Monitor blood glucose. Initiate insulin sliding scale. 6. Gastrointestinal prophylaxis with famotidine. 7. Code status, full. Surrogate decision maker is his daughter, Francesca Oconnor. The patient was seen by Dr. Parker, who has advised plan as above. Job ID: [id number]
[2019-05-15 03:38] LABS: #Eosinphils 0.3 thou/uL (0.0-0.7); #Lymphocytes 1.6 thou/uL (1.20-3.40); #Monocytes 0.6 thou/uL (0.11-0.59); #Neutrophils 4.2 thou/uL (1.40-6.50); %Basophils 0.7 % (0.0-1.0); %Eosinophils 3.9 % (0.0-10.0); %Lymphocytes 24.1 % (21.0-51.0); %Monocytes 9.3 % (0.0-10.0); Hemoglobin 11.3 g/dL (14.0-18.0); Mean Corpuscular Hemoglobin 27.3 pg (27.0-31.0); Mean Corpuscular Volume 80.1 fL (78.0-98.0); Mean Platelet Volume 8.2 fL (7.4-10.4); Platelet Count 189 thou/uL (130-400); RBC Distribution Width 12.9 % (11.5-14.5); Red Blood Cell (RBC) Count 4.15 mill/uL (4.70-6.10); White Blood Cell (WBC) Count 6.8 thou/uL (4.8-10.8)
[2019-05-15 03:58] LABS: Anion Gap 14 mmol/L (10-20); BUN (Urea Nitrogen) 30 mg/dL (8.4-25.7); Calc. Creatinine Clearance 0 mL/min (70-130); Calcium 9.1 mg/dL (7.8-10.44); Carbon Dioxide 22 mmol/L (23-31); Chloride 106 mmol/L (98-107); Estimated GFR-MDRD 36; Glucose 145 mg/dL (83-110); Potassium 3.8 mmol/L (3.5-5.1); Sodium 138 mmol/L (136-145)
[2019-05-15 04:04] LABS: Troponin I Less than 0.010 ng/mL (< 0.028)
[2019-05-15] MEDS ORDERED: Famotidine/PF 20 mg/2ml Vial SLOW IVP SCH (09:00)
[2019-05-15] MEDS ORDERED: Lorazepam 2 MG/ML VIAL SLOW IVP PRN (09:38)
[2019-05-15] MEDS ORDERED: Famotidine/PF 20 mg/2ml Vial ONE (09:49)
[2019-05-15] MEDS ORDERED: Lorazepam 2 MG/ML VIAL ONE (10:11)
--- NOTE | 2019-05-15 11:06 | NM ---
VQ SCAN: HISTORY: Shortness of breath, elevated d-dimer TECHNIQUE: A ventilation/perfusion scan was performed using 10.7 mCi xenon-133 by inhalation for the ventilation study followed by the intravenous administration of 6.6 mCi technetium 99m-MAA for the perfusion scan. CORRELATION: Chest radiograph from same date. FINDINGS: Homogeneous is noted in the tracer distribution to the lung russell bilaterally on ventilation and per fusion scans. No mismatched pleural-based, wedge-shaped, segmental or subsegmental perfusion defects are identified . IMPRESSION: Low probability for pulmonary embolism.
[2019-05-15 11:30] VITALS: BMI 33.7
--- NOTE | 2019-05-15 11:36 | RAD ---
PA AND LATERAL CHEST: HISTORY: Shortness of breath. Elevated D-dimer. COMPARISON: Exam done at 9:38 p.m. from the previous night. FINDINGS: Changes of median sternotomy are again seen. Left sided pacemaker device remains in place. The heart size is borderline. The lungs are expanded without lobar consolidation, pneumothoraces or pleural eff usions. IMPRESSION: No acute process. POS: SHAYNE
[2019-05-15] MEDS ORDERED: Aspirin 81 mg Enteric Coated Tablet PO SCH (12:00)
[2019-05-15] MEDS ORDERED: Isosorbide Mononitrate (ER) 30 MG TAB PO SCH (12:00)
[2019-05-15] MEDS ORDERED: Clopidogrel Bisulfate 75 MG TAB PO SCH (12:00)
[2019-05-15] MEDS: Insulin Regular 300 UNITS/3 ML VIAL SC PRN ×2 (15:09→18:47)
[2019-05-15] MEDS: hydrALAZINE 25 MG TAB PO SCH ×2 (15:10→21:18)
[2019-05-15] MEDS: Furosemide 20 MG/2 ML VIAL SLOW IVP SCH (15:10)
[2019-05-15] MEDS ORDERED: Magnesium 2 GM/50 ML 2 GM in Premix Bag 1 BAG IVPB SCH (18:15)
[2019-05-15] MEDS ORDERED: NPH, Human Insulin Isophane 300 UNIT/3 ML VIAL SC SCH (21:00)
[2019-05-15] MEDS ORDERED: Amlodipine 10 MG TAB PO SCH (21:00)
[2019-05-15] MEDS ORDERED: Ezetimibe 10 MG TAB PO SCH (21:00)
[2019-05-15] MEDS ORDERED: Doxazosin 2 MG TAB PO SCH (21:00)
[2019-05-15] MEDS: NPH, Human Insulin Isophane 300 UNIT/3 ML VIAL SC SCH (21:19)
[2019-05-16 04:35] LABS: #Eosinphils 0.2 thou/uL (0.0-0.7); #Lymphocytes 1.4 thou/uL (1.20-3.40); #Monocytes 0.7 thou/uL (0.11-0.59); #Neutrophils 4.1 thou/uL (1.40-6.50); %Basophils 0.6 % (0.0-1.0); %Eosinophils 3.5 % (0.0-10.0); %Lymphocytes 21.3 % (21.0-51.0); %Neutrophils 63.5 % (42.0-75.0); Hemoglobin 11.2 g/dL (14.0-18.0); Mean Corpuscular HGB CONC 33.4 g/dL (32.0-36.0); Mean Corpuscular Hemoglobin 27.1 pg (27.0-31.0); Mean Corpuscular Volume 81.1 fL (78.0-98.0); Mean Platelet Volume 8.4 fL (7.4-10.4); Platelet Count 190 thou/uL (130-400); RBC Distribution Width 13.2 % (11.5-14.5); Red Blood Cell (RBC) Count 4.12 mill/uL (4.70-6.10); White Blood Cell (WBC) Count 6.4 thou/uL (4.8-10.8)
[2019-05-16 04:47] LABS: ALT (SGPT) 13 U/L (8-55); AST (SGOT) 14 U/L (5-34); Albumin 3.7 g/dL (3.4-4.8); Alkaline Phosphatase 64 U/L (40-110); Anion Gap 12 mmol/L (10-20); BUN (Urea Nitrogen) 32 mg/dL (8.4-25.7); Bilirubin, Total 0.2 mg/dL (0.2-1.2); Calc. Creatinine Clearance 46 mL/min (70-130); Calcium 9.1 mg/dL (7.8-10.44); Carbon Dioxide 27 mmol/L (23-31); Chloride 102 mmol/L (98-107); Estimated GFR-MDRD 32; Globulin 2.7 g/dL (2.4-3.5); Glucose 270 mg/dL (83-110); Potassium 3.9 mmol/L (3.5-5.1); Protein, Total 6.4 g/dL (5.8-8.1); Sodium 137 mmol/L (136-145)
[2019-05-16] MEDS: Insulin Regular 300 UNITS/3 ML VIAL SC PRN ×2 (06:02→13:44)
[2019-05-16] MEDS: Furosemide 20 MG/2 ML VIAL SLOW IVP SCH ×2 (06:02→15:07)
[2019-05-16] MEDS: hydrALAZINE 25 MG TAB PO SCH (08:21)
[2019-05-16] MEDS: NPH, Human Insulin Isophane 300 UNIT/3 ML VIAL SC SCH (08:23)
[2019-05-16] MEDS ORDERED: Atorvastatin Calcium 40 MG TAB PO SCH (09:00)
[2019-05-16] MEDS ORDERED: Clopidogrel Bisulfate 75 MG TAB PO SCH (09:00)
[2019-05-16] MEDS ORDERED: Losartan 25 MG TAB PO SCH (09:00)
[2019-05-16] MEDS ORDERED: Isosorbide Mononitrate (ER) 30 MG TAB PO SCH (09:00)
[2019-05-16] MEDS ORDERED: Aspirin 81 mg Enteric Coated Tablet PO SCH (09:00)
[2019-05-16 12:42] VITALS: BP 100/55; TEMP 97.3
--- NOTE | 2019-05-17 09:47 | DIS ---
DATE OF ADMISSION: 05/15/2019 DATE OF DISCHARGE: 05/16/2019 DISCHARGE DISPOSITION: Home. FOLLOWUP: 1. Follow up with primary care physician, Dr. Manzo, in 1 week. 2. Follow up with Cardiology, Dr. Diop, as scheduled. ALLERGIES: NO KNOWN DRUG ALLERGIES. DISCHARGE MEDICATIONS: Amlodipine dose was reduced to 5 mg daily. Hydralazine dose was reduced to 50 mg 3 times a day. All other home medications were left unchanged. The patient was advised to monitor blood pressure 2 to 3 times a day and maintain a log. BRIEF HOSPITAL COURSE: The patient is a 79-year-old male with coronary artery disease with recent pacemaker placement, presented to the hospital with shortness of breath along with left upper extremity swelling. His workup was consistent with acute on chronic diastolic heart failure exacerbation. Pulmonary embolism was ruled out. Left upper extremity Doppler was negative for DVT. He was evaluated by Cardiology, Dr. Diop. He also had some electrolyte abnormalities, which were replaced. He is currently ambulating in the hallway without significant shortness of breath. He is currently saturating 96% on room air. FINAL DIAGNOSES: 1. Acute on chronic diastolic heart failure exacerbation. 2. Left upper extremity swelling of unclear etiology. Deep venous thrombosis ruled out. 3. Hypertension. 4. Coronary artery disease. 5. Diabetes mellitus, type 2. 6. Obesity with a BMI of 33.2. 7. Hyponatremia. 8. Chronic kidney disease, stage 3. 9. Hypomagnesemia. 10. Normochromic normocytic anemia. 11. Obstructive sleep apnea. 12. Recent pacemaker placement. PLAN: Plan was discussed with the patient and the family in detail. They stated understanding. Job ID: [id number]
--- NOTE | 2019-05-17 18:34 | CON ---
DATE OF CONSULTATION: 05/15/2019 REASON FOR CONSULTATION: Shortness of breath. HISTORY OF PRESENT ILLNESS: Mr. Shaffer is very pleasant 79-year-old gentleman, who recently presented with left arm swelling. He denied chest pain or pressure. He states he has not had significant shortness of breath. He was concerned after recent upgrade of his pacer. He did undergo a vascular study that was felt to be negative for DVT. He states he is currently back to baseline. PAST MEDICAL HISTORY: CAD, status bypass surgery and stent placement; bradycardia; COPD; chronic kidney disease; diabetes mellitus; PVCs; hypertension. PHYSICAL EXAMINATION: GENERAL: Patient is a pleasant gentleman, who is in no acute distress. The patient appears their stated age. VITAL SIGNS: Blood pressure 128/59, pulse 70, temperature afebrile. NEUROLOGIC: The patient is alert and oriented x3 with no focal neurologic deficits. HEENT: Sclerae without icterus. Mouth has moist mucous membranes with normal pallor. NECK: No JVD. Carotid upstroke brisk. No bruits bilaterally. LUNGS: Clear to auscultation with unlabored respirations. BACK: No scoliosis or kyphosis. CARDIAC: Regular rate and rhythm with normal S1 and S2. No S3 or S4 noted. No significant rubs, murmurs, thrills, or gallops noted throughout the precordium. PMI is not displaced. There is no parasternal heave. ABDOMEN: Soft, nontender, nondistended. No peritoneal signs present. No hepatosplenomegaly. No abnormal striae. EXTREMITIES: 2+ femoral and 2+ dorsalis pedis pulses. No cyanosis, clubbing, or edema. SKIN: No gross abnormalities. PERTINENT LABORATORY DATA: Hemoglobin 11.2. Creatinine 2.0. IMPRESSION: 1. Left arm swelling. 2. Mild shortness of breath. 3. Coronary artery disease. 4. Status post bypass surgery and stent placement. RECOMMENDATIONS: Mr. Shaffer appears to be back to baseline. We will be okay from my standpoint to discharge home. Job ID: [id number]
== END 2019-05-16 15:30 | disposition home or self-care (01) ==
LOC: ERS 21:04 → ERHOLD 05-15 02:00 → 2SW 05-15 11:07
PROVIDERS: ADMIT Internal Medicine; ATTEND Internal Medicine
DX: I13.0 Hypertensive heart and chronic kidney disease with heart failure and stage 1 through stage 4 chronic kidney disease, or unspecified chronic kidney disease (principal); E11.22 Type 2 diabetes mellitus with diabetic chronic kidney disease; N18.3 Chronic kidney disease, stage 3 (moderate); I50.33 Acute on chronic diastolic (congestive) heart failure; I25.10 Atherosclerotic heart disease of native coronary artery without angina pectoris; J44.9 Chronic obstructive pulmonary disease, unspecified; E87.1 Hypo-osmolality and hyponatremia; D64.9 Anemia, unspecified; G47.33 Obstructive sleep apnea (adult) (pediatric); E83.42 Hypomagnesemia; E66.9 Obesity, unspecified; Z68.33 Body mass index [BMI] 33.0-33.9, adult; Z79.02 Long term (current) use of antithrombotics/antiplatelets; Z79.4 Long term (current) use of insulin; Z79.82 Long term (current) use of aspirin; Z79.899 Other long term (current) drug therapy; Z95.0 Presence of cardiac pacemaker; Z95.1 Presence of aortocoronary bypass graft; Z95.5 Presence of coronary angioplasty implant and graft
CPT/HCPCS: 71045; 71046; 78582; 80048; 80053 ×2; 82962 ×2; 83735 ×2; 83880; 84484 ×2; 85025 ×3; 85379; 93005; 93798 ×2; 93971; 94640 ×3; 96365; 96375 ×2; 96376; 97139 ×5; 99285; A9540; A9558; G0378 ×3; 36415; 36416; 96374; J1815; J1940; J2060; J3475; J7620; S0028

== ENCOUNTER 2019-06-04 15:15 | Inpatient (IN) | payer MEDICARE ==
[2019-06-06] MEDS ORDERED: niCARdipine 25 MG/10 ML VIAL ONE (09:15)
[2019-06-06] MEDS ORDERED: Fentanyl 100 MCG/2 ML VIAL ONE ×4 (09:15→12:56)
[2019-06-06] MEDS ORDERED: Protamine Sulfate 50 MG/5 ML VIAL ONE ×2 (09:18→11:06)
[2019-06-06] MEDS ORDERED: Heparin 5,000 UNITS/ML VIAL ONE (09:18)
[2019-06-06 09:22] LABS: #Eosinphils 0.2 thou/uL (0.0-0.7); #Lymphocytes 1.3 thou/uL (1.20-3.40); #Monocytes 0.5 thou/uL (0.11-0.59); #Neutrophils 2.8 thou/uL (1.40-6.50); %Eosinophils 4.5 % (0.0-10.0); %Lymphocytes 26.4 % (21.0-51.0); %Monocytes 10.6 % (0.0-10.0); %Neutrophils 57.4 % (42.0-75.0); Hemoglobin 11.7 g/dL (14.0-18.0); Mean Corpuscular HGB CONC 33.6 g/dL (32.0-36.0); Mean Corpuscular Hemoglobin 27.1 pg (27.0-31.0); Mean Corpuscular Volume 80.6 fL (78.0-98.0); Mean Platelet Volume 8.8 fL (7.4-10.4); Platelet Count 177 thou/uL (130-400); RBC Distribution Width 13.1 % (11.5-14.5); Red Blood Cell (RBC) Count 4.33 mill/uL (4.70-6.10); White Blood Cell (WBC) Count 4.8 thou/uL (4.8-10.8)
[2019-06-06 09:36] LABS: Anion Gap 10 mmol/L (10-20); BUN (Urea Nitrogen) 29 mg/dL (8.4-25.7); Calc. Creatinine Clearance 53 mL/min (70-130); Calcium 8.8 mg/dL (7.8-10.44); Carbon Dioxide 25 mmol/L (23-31); Chloride 106 mmol/L (98-107); Estimated GFR-MDRD 38; Glucose 236 mg/dL (83-110); Sodium 137 mmol/L (136-145)
[2019-06-06] MEDS ORDERED: Rocuronium Bromide 10 MG/ML (10ML VIAL) ONE (09:46)
[2019-06-06] MEDS ORDERED: Ondansetron PF 4 MG/2 ML Vial ONE (09:46)
[2019-06-06] MEDS ORDERED: PROPOFOL 200 MG/20 ML VIAL ONE (09:46)
[2019-06-06] MEDS ORDERED: Lidocaine 1% PF 5 ML VIAL ONE (09:46)
[2019-06-06] MEDS ORDERED: Protamine Sulfate 250 MG/25 ML VIAL ONE (11:05)
[2019-06-06] MEDS ORDERED: Sodium Chloride 0.9% 10 ML ONE (11:44)
[2019-06-06] MEDS ORDERED: Promethazine HCl 25 MG/ML VIAL IM PRN (11:46)
[2019-06-06] MEDS ORDERED: Promethazine HCl 25 MG/ML VIAL SLOW IVP PRN (11:46)
[2019-06-06] MEDS ORDERED: PACU-Morphine 4MG/ML VIAL SLOW IVP PRN (11:46)
[2019-06-06] MEDS ORDERED: Ondansetron HCl/PF 4 MG/2 ML Vial IVP PRN (11:46)
--- NOTE | 2019-06-06 12:11 | OP ---
DATE OF PROCEDURE: 06/06/2019 PREOPERATIVE DIAGNOSIS: Asymptomatic left carotid stenosis. POSTOPERATIVE DIAGNOSIS: Asymptomatic left carotid stenosis. PROCEDURE PERFORMED: Left carotid endarterectomy with patch angioplasty. ANESTHESIA: General endotracheal. ESTIMATED BLOOD LOSS: Less than 100. DRAINS: None. SPECIMENS: Left jugular chain lymph node for lymph node protocol. DESCRIPTION OF PROCEDURE: After operative consent was obtained, the patient was brought to the operating room and placed in supine position on the operating room table. Appropriate central line and monitors were placed and general endotracheal anesthesia was induced. Left neck was interrogated with ultrasound and the carotid bifurcation marked. Left neck was prepped and draped in usual sterile fashion. A skin incision was made along the anterior border of the sternocleidomastoid. Dissection through the platysma and along the anterior border of the sternocleidomastoid was made with electrocautery. The carotid sheath was then entered. There were no facial vein branches. Common, internal, and external carotid arteries were carefully dissected free from surrounding tissues. Vagus and hypoglossal nerves were noted and protected throughout the procedure. The patient was systemically heparinized. After 3 minutes, internal, common, and external carotid arteries were serially clamped. Incision was made on the common carotid artery extended through the bulb on the internal carotid artery distal to plaque. A 10-Maced[place] Holliday shunt was placed and antegrade flow re-established. Endarterectomy was begun on the common carotid artery extended through the bulb onto the internal carotid artery. An eversion endarterectomy was performed of the external carotid artery. A good tapered distal endpoint on the internal carotid artery was obtained. Medial fibers were debrided. Artery was flushed with heparinized saline. The bovine pericardial patch was sewn in place with running 6-0 Prolene suture. Prior to completion of patch suture line, shunt was clamped and removed. Arteries were all back bled and flushed with heparinized saline. The patch suture line was then completed with backbleeding from the internal carotid artery continuously flowing. The internal carotid artery was then clamped. Antegrade flow was reestablished up the external carotid artery followed by the internal carotid artery 10 seconds later. Protamine was administered. Hemostasis was ensured. Wounds were copiously irrigated, closed in layers and Dermabond applied to skin. The patient was awakened and neurologically intact at completion of the procedure. He was transferred to the intensive care in stable condition. Job ID: [id number]
[2019-06-06] MEDS ORDERED: hydrALAZINE 20 MG/ML VIAL SLOW IVP PRN (12:12)
[2019-06-06] MEDS ORDERED: Acetaminophen 325 MG TAB PO PRN (12:12)
[2019-06-06] MEDS ORDERED: Phenylephrine 10 MG/NS 250 ML 250 ML IVPB PRN (12:12)
[2019-06-06] MEDS ORDERED: Nitroglycerin 50 MG/250 ML BOT 250 ML IVPB PRN (12:12)
[2019-06-06] MEDS ORDERED: traMADol HCl 50 MG TAB PO PRN (12:12)
[2019-06-06] MEDS ORDERED: Ondansetron PF 4 MG/2 ML Vial IVP PRN (12:12)
[2019-06-06] MEDS ORDERED: Fentanyl 100 MCG/2 ML VIAL SLOW IVP PRN ×2 (12:12)
[2019-06-06] MEDS ORDERED: Morphine 2 MG/ML SYRINGE ONE (14:56)
[2019-06-06] MEDS ORDERED: Morphine 4 MG/ML VIAL ONE (15:33)
[2019-06-06] MEDS ORDERED: CEFAZOLIN 1 GM VIAL ONE (15:59)
[2019-06-06] MEDS ORDERED: Sodium Chloride 0.9% 100 ML ONE (16:00)
[2019-06-06] MEDS: CEFAZOLIN 2 GM in Premix Bag 1 BAG IVPB SCH ×2 (16:41→23:29)
[2019-06-06] MEDS: Sodium Chloride 0.9% 1,000 ML IV SCH ×2 (16:42→23:12)
[2019-06-06 16:48] VITALS: BP 112/54; BMI 30.6
[2019-06-06] MEDS: Insulin Regular 300 UNITS/3 ML VIAL SC PRN ×2 (17:25→20:47)
[2019-06-06] MEDS ORDERED: Amlodipine 10 MG TAB PO SCH (21:00)
[2019-06-06] MEDS ORDERED: Ezetimibe 10 MG TAB PO SCH (21:00)
[2019-06-06] MEDS ORDERED: Doxazosin 2 MG TAB PO SCH (21:00)
[2019-06-07] MEDS: Insulin Regular 300 UNITS/3 ML VIAL SC PRN (06:37)
[2019-06-07] MEDS: CEFAZOLIN 2 GM in Premix Bag 1 BAG IVPB SCH (07:23)
[2019-06-07 07:30] VITALS: TEMP 98.8
[2019-06-07] MEDS ORDERED: Aspirin 81 mg Enteric Coated Tablet PO SCH (09:00)
[2019-06-07] MEDS ORDERED: Furosemide 40 MG TAB PO SCH (09:00)
[2019-06-07] MEDS ORDERED: Losartan 25 MG TAB PO SCH (09:00)
[2019-06-07] MEDS ORDERED: Clopidogrel Bisulfate 75 MG TAB PO SCH (09:00)
--- NOTE | 2019-06-07 13:39 | DIS ---
DATE OF ADMISSION: 06/06/2019 DATE OF DISCHARGE: 06/07/2019 DIAGNOSIS: Asymptomatic left carotid stenosis. PROCEDURE PERFORMED: Left carotid endarterectomy with patch angioplasty. DESCRIPTION OF HOSPITAL STAY: Mr. Shaffer was admitted with an asymptomatic left carotid stenosis. He underwent carotid endarterectomy with patch angioplasty. He is neurologically intact postoperatively and being sent home with no changes in his medical regimen. Follow up is with me in 2 weeks. Job ID: [id number]
[2019-06-07] MEDS ORDERED: Atorvastatin Calcium 40 MG TAB PO SCH (21:00)
--- NOTE | 2019-06-08 15:19 | EKG ---
Test Reason : PREOP Blood Pressure : / mmHG Vent. Rate : 070 BPM Atrial Rate : 070 BPM P-R Int : 194 ms QRS Dur : 096 ms QT Int : 384 ms P-R-T Axes : 029 078 -10 degrees QTc Int : 414 ms Electronic atrial pacemaker Nonspecific T wave abnormality Abnormal ECG When compared with ECG of 14-MAY-2019 21:12, (Unconfirmed) Premature ventricular complexes are no longer Present Confirmed by DR. Hazel TOMAS ([id number]) on 06/08/2019 3:19:36 PM Referred By: Meghana BURGESS Confirmed By:DR. Hazel TOMAS
== END 2019-06-07 09:30 | disposition home or self-care (01) | DRG 39 ==
LOC: SURG A 06-06 06:52 → CCU 06-06 16:12
PROVIDERS: ADMIT Thoracic Surgery (Cardiothoracic Vascular Surgery); ATTEND Thoracic Surgery (Cardiothoracic Vascular Surgery)
PROC: 03CJ0ZZ Extirpation of Matter from Left Common Carotid Artery, Open Approach (ICD-10-PCS; principal; 2019-06-06)
PROC: 03CN0ZZ Extirpation of Matter from Left External Carotid Artery, Open Approach (ICD-10-PCS; 2019-06-06)
PROC: 03CL0ZZ Extirpation of Matter from Left Internal Carotid Artery, Open Approach (ICD-10-PCS; 2019-06-06)
PROC: 03UJ0JZ Supplement Left Common Carotid Artery with Synthetic Substitute, Open Approach (ICD-10-PCS; 2019-06-06)
PROC: 03UL0JZ Supplement Left Internal Carotid Artery with Synthetic Substitute, Open Approach (ICD-10-PCS; 2019-06-06)
PROC: 03UN0JZ Supplement Left External Carotid Artery with Synthetic Substitute, Open Approach (ICD-10-PCS; 2019-06-06)
DX: I65.22 Occlusion and stenosis of left carotid artery (principal); I12.9 Hypertensive chronic kidney disease with stage 1 through stage 4 chronic kidney disease, or unspecified chronic kidney disease; E11.22 Type 2 diabetes mellitus with diabetic chronic kidney disease; N18.3 Chronic kidney disease, stage 3 (moderate); I25.10 Atherosclerotic heart disease of native coronary artery without angina pectoris; E78.5 Hyperlipidemia, unspecified; Z95.1 Presence of aortocoronary bypass graft; Z95.5 Presence of coronary angioplasty implant and graft; Z82.49 Family history of ischemic heart disease and other diseases of the circulatory system; Z82.3 Family history of stroke
CPT/HCPCS: 36416; 80048; 85025; 88184; 88307; 93005; 93010; J0690; J1642; J1644; J1815; J2001; J2270; J2405; J2704; J2720; J3010; J3490; J7620

== ENCOUNTER 2020-08-07 10:47 | Outpatient (CLI) | payer MEDICARE ==
[2020-08-07 18:22] LABS: SARS-CoV-2 PCR by NAA Not Detected (NotDetected)
== END 2020-08-07 10:48 | disposition home or self-care (01) ==
LOC: LABBT 10:47
PROVIDERS: ATTEND Internal Medicine Gastroenterology
DX: D64.9 Anemia, unspecified (principal); Z86.010 Personal history of colon polyps; K43.2 Incisional hernia without obstruction or gangrene; Z20.822 Contact with and (suspected) exposure to COVID-19
CPT/HCPCS: U0003; U0005; 87635

== ENCOUNTER 2020-08-12 06:38 | Day surgery (SDC) | payer MEDICARE ==
[2020-08-11 11:47] VITALS: BMI 34.7
[2020-08-12] MEDS ORDERED: Fentanyl 100 MCG/2 ML VIAL ONE ×2 (09:00→10:30)
[2020-08-12] MEDS ORDERED: Lidocaine 1% PF 5 ML VIAL ONE (09:06)
[2020-08-12] MEDS ORDERED: Ondansetron PF 4 MG/2 ML Vial ONE (09:06)
[2020-08-12] MEDS ORDERED: ePHEDrine 50 MG/ML VIAL ONE (09:06)
[2020-08-12] MEDS ORDERED: Glycopyrrolate 0.2 MG/ML 5 ML SYRINGE ONE (09:06)
[2020-08-12] MEDS ORDERED: PROPOFOL 200 MG/20 ML VIAL ONE (09:06)
[2020-08-12] MEDS ORDERED: Rocuronium Bromide 10 MG/ML (10ML VIAL) ONE (09:06)
[2020-08-12] MEDS ORDERED: PHENYLEPHRINE-NS 100 MCG/ML 10 ML SYRINGE ONE (09:06)
== END 2020-08-12 11:32 | disposition home or self-care (01) ==
LOC: SDC 06:38
PROVIDERS: ATTEND Internal Medicine Gastroenterology
PROC: 0DBH8ZX Excision of Cecum, Via Natural or Artificial Opening Endoscopic, Diagnostic (ICD-10-PCS; principal; 2020-08-12)
PROC: 0D5H8ZZ Destruction of Cecum, Via Natural or Artificial Opening Endoscopic (ICD-10-PCS; 2020-08-12)
DX: Z09 Encounter for follow-up examination after completed treatment for conditions other than malignant neoplasm (principal); D12.0 Benign neoplasm of cecum; I13.0 Hypertensive heart and chronic kidney disease with heart failure and stage 1 through stage 4 chronic kidney disease, or unspecified chronic kidney disease; E11.22 Type 2 diabetes mellitus with diabetic chronic kidney disease; N18.9 Chronic kidney disease, unspecified; I50.9 Heart failure, unspecified; E78.5 Hyperlipidemia, unspecified; I49.9 Cardiac arrhythmia, unspecified; G47.30 Sleep apnea, unspecified; I25.10 Atherosclerotic heart disease of native coronary artery without angina pectoris; Z86.010 Personal history of colon polyps; Z87.891 Personal history of nicotine dependence; Z79.02 Long term (current) use of antithrombotics/antiplatelets; Z79.4 Long term (current) use of insulin; Z79.899 Other long term (current) drug therapy; Z95.0 Presence of cardiac pacemaker; Z95.1 Presence of aortocoronary bypass graft; Z95.5 Presence of coronary angioplasty implant and graft
CPT/HCPCS: 36416; 88305; J2405; J2704; J3010; J3490

== ENCOUNTER → 2022-09-29 | Day surgery (SDC) | payer MEDICARE ==
[2022-09-27 15:09] VITALS: BMI 35.2
[2022-09-27 15:32] LABS: Hemoglobin 12.2 g/dL (13.5-17.5); Mean Corpuscular HGB CONC 31.8 g/dL (32.0-36.0); Mean Corpuscular Hemoglobin 26.5 pg (27.0-33.0); Mean Corpuscular Volume 83.3 fl (81.2-95.1); Mean Platelet Volume 10.6 fl (7.4-10.4); Platelet Count 238 10x3/uL (150-450); RBC Distribution Width 14.6 % (11.5-14.5); Red Blood Cell (RBC) Count 4.61 10x6/uL (4.32-5.72); White Blood Cell (WBC) Count 6.4 10x3/uL (3.5-10.5)
[2022-09-27 15:33] LABS: INR-International Normal Ratio 1.3; PTT 35.1 sec (22.0-33.0); Prothrombin Time 13.4 sec (9.5-12.1)
[2022-09-27 15:46] LABS: Anion Gap 15 mmol/L (10-20); BUN (Urea Nitrogen) 32 mg/dL (8.4-25.7); Calc. Creatinine Clearance 47 mL/min (70-130); Calcium 8.9 mg/dL (7.8-10.44); Carbon Dioxide 22 mmol/L (23-31); Chloride 106 mmol/L (98-107); Estimated GFR 34; Glucose 135 mg/dL (83-110); Potassium 4.4 mmol/L (3.5-5.1); Sodium 139 mmol/L (136-145)
[~2022-09-29] MED LIST: Dexamethasone 20 MG/5 ML VIAL ONE; Glycopyrrolate 0.2 MG/ML 5 ML SYRINGE ONE; Heparin 10,000 UNITS/ 10 ML VIAL ONE; Heparin 25,000 units/D5W 500 ML ONE; Isoproterenol 0.2 MG/1 ML AMP ONE; Lidocaine 1% PF 5 ML VIAL ONE; NEOSTIGMINE 3 MG/3 ML SYR 3 MG/3 ML SYRINGE ONE; Ondansetron PF 4 MG/2 ML Vial ONE; PHENYLEPHRINE-NS 100 MCG/ML 10 ML SYRINGE ONE; PROPOFOL 200 MG/20 ML VIAL ONE; Protamine Sulfate 50 MG/5 ML VIAL ONE; Rocuronium Bromide 10 MG/ML (10ML VIAL) ONE; Succinylcholine Chloride 100 MG/5 ML SYRINGE FS ONE; ePHEDrine Sulfate 50 MG/10 ML VIAL ONE; fentaNYL 50 mcg/mL 1 mL Vial ONE
== END | disposition home or self-care (01) ==
LOC: SDC 05:52
PROVIDERS: ATTEND Internal Medicine Cardiovascular Disease
PROC: B244ZZ3 Ultrasonography of Right Heart, Intravascular (ICD-10-PCS; principal; 2022-09-29)
PROC: 02583ZZ Destruction of Conduction Mechanism, Percutaneous Approach (ICD-10-PCS; 2022-09-29)
PROC: 02K83ZZ Map Conduction Mechanism, Percutaneous Approach (ICD-10-PCS; 2022-09-29)
PROC: 4A023FZ Measurement of Cardiac Rhythm, Percutaneous Approach (ICD-10-PCS; 2022-09-29)
PROC: 4A0234Z Measurement of Cardiac Electrical Activity, Percutaneous Approach (ICD-10-PCS; 2022-09-29)
PROC: 5A2204Z Restoration of Cardiac Rhythm, Single (ICD-10-PCS; 2022-09-29)
DX: I48.0 Paroxysmal atrial fibrillation (principal); I25.10 Atherosclerotic heart disease of native coronary artery without angina pectoris; I10 Essential (primary) hypertension; I49.3 Ventricular premature depolarization; E78.5 Hyperlipidemia, unspecified; E11.9 Type 2 diabetes mellitus without complications; I08.1 Rheumatic disorders of both mitral and tricuspid valves; I47.1 Supraventricular tachycardia; Z87.891 Personal history of nicotine dependence; Z79.01 Long term (current) use of anticoagulants; Z79.4 Long term (current) use of insulin; Z79.82 Long term (current) use of aspirin; Z79.84 Long term (current) use of oral hypoglycemic drugs; Z79.899 Other long term (current) drug therapy; Z95.0 Presence of cardiac pacemaker; Z95.1 Presence of aortocoronary bypass graft; Z95.5 Presence of coronary angioplasty implant and graft; Z89.022 Acquired absence of left finger(s)
CPT/HCPCS: 80048; 82962; 85027; 85610; 85730; 93005; 93623; 93656; 93657; C1732 ×3; C1759; C1760; C1894 ×2; J3010; 36416; J1100; J1644; J2405; J2704; J2720